=== PATIENT | female | born 1945 | race Caucasian/White ===

== ENCOUNTER 2018-10-26 17:22 | Emergency (ER) | payer OTHER, MEDICARE ==
--- NOTE | 2018-10-26 17:32 | PDOC ---
Rapid Medical Evaluation Time Seen by Provider: 10/26/18 17:29 Medical Evaluation: Allergies Allergy/AdvReac Type Severity Reaction Status Date / Time No Known Drug Allergies Allergy Verified 04/27/16 15:51 10/26/18 17:29 I performed a brief in-person evaluation of this patient. Chief complaint: Decrease in hgb on routine outpatient labs (patient thinks from hgb 10 to 8), on warfarin for "superficial blood clots" in the legs per pt. Denies hematochezia or other bleeding. Pertinent physical exam findings: Alert, well-appearing. RRR, S1/S2, clear lungs. I have ordered the following: CBC, CMP, PT/INR, T&S Patient will proceed to ED for further evaluation. Discharge Disposition - Diagnosis Anemia - Referrals - Patient Instructions - Post Discharge Activity
[2018-10-26 17:33] VITALS: TEMP 98.5; BMI 38.1
[2018-10-26 18:26] LABS: BASO % 0.6 % (0-2.0); EOS % 2.1 % (0-4.5); HEMATOCRIT 26.5 % (32.4-45.2); HEMOGLOBIN 8.7 GM/dL (10.7-15.3); LYMPH % 17.3 % (8-40); MCH 28.4 pg (25.7-33.7); MCHC 32.9 g/dl (32.0-36.0); MEAN CELL VOLUME 86.2 fl (80-96); MEAN PLT VOLUME 7.7 fl (7.5-11.1); MONO % 11.9 % (3.8-10.2); NEUT % 68.1 % (42.8-82.8); PLATELET COUNT 230 K/MM3 (134-434); RBC 3.07 M/mm3 (3.60-5.2); RDW 14.9 % (11.6-15.6)
[2018-10-26 18:43] LABS: ALBUMIN 3.5 g/dl (3.4-5.0); ALK PHOS 95 U/L (45-117); ANION GAP 5 MMOL/L (8-16); BILIRUBIN,TOTAL 0.3 mg/dL (0.2-1); BLOOD UREA NITROGEN 26 mg/dL (7-18); CALCIUM 8.8 mg/dL (8.5-10.1); CHLORIDE 102 mmol/L (98-107); CO2 28 mmol/L (21-32); GLUCOSE,RANDOM 142 mg/dL (74-106); POTASSIUM 3.8 mmol/L (3.5-5.1); SGOT/AST 16 U/L (15-37); SGPT/ALT 18 U/L (13-61); SODIUM 134 mmol/L (136-145)
[2018-10-26 18:51] LABS: INR 2.36 (0.83-1.09); PROTHROMBIN TIME (PATIENT) 28.1 SEC (9.7-13.0)
--- NOTE | 2018-10-26 20:33 | PDOC ---
History of Present Illness - General Chief Complaint: Revisit, Lab Variance Stated Complaint: NEEDS BLOOD WORK PCP SENT Time Seen by Provider: 10/26/18 17:29 History Source: Patient Exam Limitations: No Limitations - History of Present Illness Initial Comments: Pt is a 73 yo F, with PMH of HTN, HLD, thyroid nodules (followed by US with Dr. Lucas), "superficial" LE clots (per pt, on warfarin x2 years), who is presenting from home by her PCP (Dr. Orona) for concerns that her H/H is dropping on outpatient labwork. Pt denies any current SOB, syncopal episodes, changes to her coumadin therapy, noticeable blood in her urine or stool, changes in her stool caliber, or weight loss. Pt does not take NSAIDs or drink alcohol. Pt had stress test and echo done 6 months ago for exertional SOB which pt states "was all normal". Pt has regular cystoscopy done every year after a bladder polyp was removed in her 50s, with no reoccurrence. Her last colonoscopy and endoscopy showed no GI ulcers, but did show internal hemorrhoids with diverticulitis. Pt denies any recent fevers/chills, headache, vision changes, syncope, chest pain, palpitations, SOB, nausea/vomiting, abdominal pain, urinary symptoms, diarrhea/constipation, or leg swelling. Social: Pt denies any cigarette, alcohol, or drug use. Pt denies any recent travel or sick contacts. Surgical: bladder polyp removal, see above. Otherwise no abdominal surgeries. Family: no relevant history. 10/26/18 20:37 Past History - Travel Traveled outside of the country in the last 30 days: No Close contact w/someone who was outside of country & ill: No - Past Medical History Allergies/Adverse Reactions: Allergies Allergy/AdvReac Type Severity Reaction Status Date / Time No Known Drug Allergies Allergy Verified 10/26/18 17:30 Home Medications: Ambulatory Orders Oxycodone HCl/Acetaminophen [Percocet 5-325 mg Tablet] 1 combo PO Q4H PRN #0 tablet 01/04/13 Pravastatin Sodium [Pravachol -] 40 mg PO HS #0 tablet 01/04/13 Multivitamins [Multivit ([facility] Formulary)] 1 tab PO DAILY 06/11/14 Valsartan/Hydrochlorothiazide [Valsartan-Hctz 80-12.5 mg Tab] 1 each PO DAILY Cholecalciferol (Vitamin D3) [Vitamin D3 -] 1,000 unit PO DAILY 04/27/16 Acetaminophen [Tylenol -] 500 mg PO Q6H 04/28/16 Hydrocodone/Acetaminophen [Lortab 5-325 mg Tablet] 1 - 2 each PO QID PRN #20 tablet MDD 8 pills 04/28/16 Anemia: Yes (IRON DEFICIENCY) Asthma: No Cancer: Yes (BLADDER) Cardiac Disorders: No CVA: No COPD: No CHF: No Dementia: No Diabetes: No GI Disorders: Yes (DIVERTICULOSIS, HIATAL HERNIA) Disorders: No HTN: Yes Hypercholesterolemia: Yes Liver Disease: No Seizures: No Thyroid Disease: No - Surgical History Abdominal Surgery: No Appendectomy: No Cardiac Surgery: No Cholecystectomy: No Lung Surgery: No Neurologic Surgery: No Orthopedic Surgery: Yes (RIGHT TOTAL KNEE REPLACMENT) - Immunization History Td Vaccination: Yes - Suicide/Smoking/Psychosocial Hx Smoking Status: Yes Smoking History: Never smoked Have you smoked in the past 12 months: No Number of Cigarettes Smoked Daily: 0 If you are a former smoker, when did you quit?: 1970 Hx Alcohol Use: No Drug/Substance Use Hx: No Substance Use Type: None Hx Substance Use Treatment: No Review of Systems - Review of Systems Able to Perform ROS?: Yes Is the patient limited Chinese proficient: No Constitutional: Yes: Weight Stable. No: Chills, Diaphoresis, Fever, Loss of Appetite, Malaise, Weakness HEENTM: No: Blurred Vision, Double Vision, Nose Pain, Nose Congestion, Throat Pain, Throat Swelling, Difficulty Swallowing Respiratory: Yes: See HPI, Shortness of Breath, SOB with Exertion (for over 6 months, negative cardiac work-up, see HPI). No: Cough, Orthopnea, SOB at Rest, Wheezing, Productive cough, Hemoptysis Cardiac (ROS): No: Chest Pain, Edema, Irregular Heart Rate, Lightheadedness, Palpitations, Syncope, Chest Tightness ABD/GI: No: Blood Streaked Bowels, Constipated, Diarrhea, Nausea, Poor Appetite , Poor Fluid Intake, Rectal Bleeding, Vomiting, Abdominal cramping, Tarry Stools : No: Burning, Dysuria, Frequency, Hematuria, Pain, Urgency Musculoskeletal: No: Back Pain, Joint Pain, Muscle Weakness Integumentary: No: Rash Neurological: No: Numbness, Paresthesia, Seizure, Tremors, Weakness, Unsteady Gait, Dizziness Psychiatric: No: Sleep Pattern Change, Change in Appetite Endocrine: No: Increased Urine, Change in Weight Hematologic/Lymphatic: Yes: See HPI, Anemia, Blood Clots. No: Easy Bleeding, Easy Bruising All Other Systems: Reviewed and Negative *Physical Exam - Vital Signs Last Vital Signs Temp Pulse Resp BP Pulse Ox 98.5 F 96 H 17 153/90 100 10/26/18 17:30 10/26/18 17:30 10/26/18 17:30 10/26/18 17:30 10/26/18 19:14 - Physical Exam Comments: Vitals stable, pt afebrile. Pt in NAD, obese body habitus. Pt ambulatory in ED with no obvious dyspnea or retractions. Pt alert and oriented x3. shrimp cleaner generally intact, muscular strength and sensation intact. No midline spinal tenderness, step-offs, or crepitus. Head normocephalic, atraumatic. Eyes PERRLA, EOMI. Oropharynx without erythema or exudates, no LAD b/l. No nasal congestion, hearing intact. Clear heart sounds, S1/S2, no JVD, b/l pedal edema, or heart murmur. Clear lung sounds, no respiratory distress, wheezes, crackles, or accessory muscle use. No abdominal or CVA tenderness to palpation, no rebound, no guarding. Abdomen soft, non-distended, and with normoactive bowel sounds. Rectal exam showed no external hemorrhoids, no gross blood in MITALI. Skin without jaundice or rash. 10/26/18 20:40 ED Treatment Course - LABORATORY CBC & Chemistry Diagram: 10/26/18 18:05 10/26/18 18:05 - ADDITIONAL ORDERS Additional order review: Laboratory Results 10/26/18 10/26/18 18:05 18:05 PT with INR 28.10 H INR 2.36 H Sodium 134 L Potassium 3.8 Chloride 102 Carbon Dioxide 28 Anion Gap 5 L BUN 26 H Creatinine 1.0 Creat Clearance w eGFR 54.05 Random Glucose 142 H Calcium 8.8 Total Bilirubin 0.3 AST 16 ALT 18 Alkaline Phosphatase 95 Total Protein 7.0 Albumin 3.5 10/26/18 18:05 RBC 3.07 L MCV 86.2 MCHC 32.9 RDW 14.9 D MPV 7.7 Neutrophils % 68.1 Lymphocytes % 17.3 Monocytes % 11.9 H Eosinophils % 2.1 Basophils % 0.6 Medical Decision Making - Medical Decision Making Pt was seen at bedside, also will be seen by attending Dr. Worrell. Pt presenting from home by her PCP (Dr. Orona) for concerns that her H/H is dropping on outpatient labwork. Pt denies any current SOB, syncopal episodes, changes to her coumadin therapy, noticeable blood in her urine or stool, changes in her stool caliber, or weight loss. Pt does not take NSAIDs or drink alcohol. Pt had stress test and echo done 6 months ago for exertional SOB which pt states "was all normal". Pt has regular cystoscopy done every year after a bladder polyp was removed in her 50s, with no reoccurrence. Her last colonoscopy and endoscopy showed no GI ulcers, but did show internal hemorrhoids with diverticulitis. Pt denies any recent fevers/chills, headache, vision changes, syncope, chest pain, palpitations, SOB, nausea/vomiting, abdominal pain, urinary symptoms, diarrhea/constipation, or leg swelling. Considering chronic anemia 2/2 blood loss -- GI ulcer vs bladder? vs Fe- deficiency anemia vs dilution (pt states has been drinking more PO water). Pt has elevated BUN/Cr ratio, which could be indicative of upper GI bleed. Ordered work-up including CBC, CMP, coags, UA, and fecal occult blood test. Will continue to reassess pt and monitor for symptomatic improvement. 10/26/18 20:06 CBC: 8.7/26.5 (drop from 10.2/30s per pt). Normal MCV -- less likely Fe- deficiency, more likely chronic bleeding/ACD. CMP: BUN 26, which is steadily increasing from prior visits. INR therapeutic (2.36). Sent FOBT and UA tests to lab. 10/26/18 20:33 FOBT negative, no significant bleeding in UA (trace blood, +1 RBC -- consistent with story of prior bladder polyps). Pt gets regular cystoscopy done. Because pt is not currently symptomatic and there is no obvious source of bleeding (and not at level of needed transfusion), pt can be discharged to home with follow-up PCP (Dr. Orona) and pts urologist. Strict return precautions provided with pt understanding. 10/26/18 21:09 *DC/Admit/Observation/Transfer Diagnosis at time of Disposition: Anemia Qualifiers: Anemia type: other cause Other causes of anemia: other cause, not classified Qualified Code(s): D64.89 - Other specified anemias - Discharge Dispostion Disposition: HOME Condition at time of disposition: Good Decision to Admit order: No - Referrals Referrals: Daniel Orona MD [Primary Care Provider] - - Patient Instructions Printed Discharge Instructions: DI for Anemia of Chronic Disease Additional Instructions: You were seen in the ER today for anemia. The results of your labs today showed no active source of bleeding, and can be followed with Dr. Orona. Please follow- up with your primary care doctor within 1-2 days to discuss your visit and make sure your symptoms have improved. Please return to the ER if you have any worsening shortness of breath, chest pain or palpitations, development of fevers or chills, loss of consciousness, inability to tolerate food or fluids, or any other concerns. Please also continue to follow-up for your regular cystoscopy and colonoscopy as scheduled by Dr. Orona. - Post Discharge Activity
[2018-10-26 20:56] LABS: EPI CELLS 0.2 /HPF (0-5/HPF); URINE APPEARANCE CLEAR; URINE BACTERIA 0 /hpf (NEGATIVE); URINE BILIRUBIN NEGATIVE (NEGATIVE); URINE CASTS 0 /lpf (0-8); URINE COLOR YELLOW; URINE GLUCOSE (UA) NEGATIVE (NEGATIVE); URINE KETONE NEGATIVE (NEGATIVE); URINE LEUK ESTERASE NEGATIVE (NEGATIVE); URINE NITRITE NEGATIVE (NEGATIVE); URINE PROTEIN NEGATIVE (NEGATIVE); URINE RBC 1 /hpf (0-4); URINE UROBILINOGEN 0.2 mg/dL (0.2-1.0); URINE WBC 0 /hpf (0-5)
--- NOTE | 2018-10-26 21:30 | PDOC ---
Documentation entered by Joseph Martino SCRIBE, acting as scribe for Bahman Worrell MD. Bahman Worrell MD: This documentation has been prepared by the [employer] Daniel, SCRIBE, under my direction and personally reviewed by me in its entirety. I confirm that the documentation accurately reflects all work, treatment, procedures, and medical decision making performed by me. Attending Attestation - Resident Resident Name: KevinMimi - ED Attending Attestation I have performed the following: I have examined & evaluated the patient, The case was reviewed & discussed with the resident, I agree w/resident's findings & plan, Exceptions are as noted - HPI HPI: 10/26/18 20:19 The patient is a 73 year old female with a past medical history of HTN, HLD, thyroid nodules, superficial DVT (on coumadin), here today for evaluation of low H/H. Patient reports that she went for routine blood work on 10/25/18 and was told today that her H/H was low. Pt's Hb yesterday was 8, down from 10 a few weeks ago. Pt denies any complaints. Denies CP/SOB/palpitations/ lightheadedness. Denies any dark tarry stools or BRBPR. No hematuria. Patient denies headache, lightheadedness. Denies fever, chills. Denies chest pain, shortness of breath. Denies nausea, vomiting, diarrhea, abdominal pain. Allergies: NKDA PCP: Daniel Orona - Physicial Exam PE: 10/26/18 21:26 GENERAL: Awake, alert, and fully oriented, in no acute distress. HEAD: No signs of trauma EYES: PERRLA, EOMI, sclera anicteric, conjunctiva clear ENT: Auricles normal inspection, hearing grossly normal, nares patent, oropharynx clear without exudates. Moist mucosa NECK: Nontender, no stepoffs, Normal ROM, supple, no lymphadenopathy, JVD, or masses LUNGS: Breath sounds equal, clear to auscultation bilaterally. No wheezes, and no crackles HEART: Regular rate and rhythm, normal S1 and S2, no murmurs, rubs or gallops ABDOMEN: Soft, nontender, normoactive bowel sounds. No guarding, no rebound. No masses EXTREMITIES: Normal range of motion, no edema. No clubbing or cyanosis. No cords, erythema, or tenderness NEUROLOGICAL: Cranial nerves II through XII intact. 5/5 strength and sensation in all extremities, Normal speech, normal gait, normal cerebellar function SKIN: Warm, Dry, normal turgor, no rashes or lesions noted. - Medical Decision Making 10/26/18 21:29 73 F here for evaluation of low H/H on outpt labs. Pt with no symptoms of anemia , stable vitals. No signs of bleeding on exam. - Repeat H/H - FOBT Labs unremarkable, CBC stable since yesterday Stool occult negative Pt is well appearing, with normal vitals. Clinically stable for DC at this time. I discussed the physical exam findings, ancillary test results and final diagnoses with the patient. I answered all of the patient's questions. The patient was satisfied with the care received and felt comfortable with the discharge plan and treatment plan. The patient agrees to follow up with the primary care physician within 24-72 hours.
[2018-10-26 21:42] VITALS: BP 136/70; PULSE 79
== END 2018-10-26 21:43 | disposition home or self-care (01) ==
LOC: JER 17:22
DX: D64.89 Other specified anemias (principal); I10 Essential (primary) hypertension; E78.5 Hyperlipidemia, unspecified; Z86.718 Personal history of other venous thrombosis and embolism; Z79.01 Long term (current) use of anticoagulants
CPT/HCPCS: 36415; 80053; 81003; 82272; 85025; 85610; 86850; 86900; 86901; 99283-25

== ENCOUNTER 2021-01-02 15:28 | Emergency (ER) | payer OTHER, MEDICARE ==
[2021-01-02 15:40] VITALS: BMI 37.8
[2021-01-02] MEDS ORDERED: PHYTONADIONE 5 MG TABLET PO ONE (16:34)
[2021-01-02 16:45] VITALS: TEMP 98
[2021-01-02] MEDS ORDERED: PHYTONADIONE 5 MG TABLET ONE (16:51)
[2021-01-02 17:33] VITALS: BP 136/79; PULSE 87
== END 2021-01-02 17:36 | disposition home or self-care (01) ==
LOC: JER 15:28
DX: R79.1 Abnormal coagulation profile (principal)
CPT/HCPCS: 99283-25

== ENCOUNTER 2021-03-20 14:48 | Emergency (ER) | payer OTHER, MEDICARE ==
[2021-03-20 15:37] VITALS: TEMP 98.4; BMI 39.0
[2021-03-20 18:40] VITALS: BP 144/78; PULSE 86
== END 2021-03-20 19:35 | disposition home or self-care (01) ==
LOC: JER 14:48
DX: B02.8 Zoster with other complications (principal)
CPT/HCPCS: 70450-TC; 99284-25

== ENCOUNTER 2021-06-08 04:24 | Day surgery (SDC) | payer OTHER, MEDICARE ==
[2021-06-02 13:28] VITALS: BMI 39.0
[2021-06-08] MEDS ORDERED: BUPIVACAINE HCL/PF 0.75% 10 ML VIAL ONE (07:34)
[2021-06-08] MEDS ORDERED: LIDOCAINE HCL/PF 1% SDV 5ML VIAL ONE (07:34)
[2021-06-08] MEDS ORDERED: LIDOCAINE HCL 1% PRESERVATIVE FREE - 30ML VIAL EP ONE (11:55)
[2021-06-08] MEDS ORDERED: DEXAMETHASONE SOD PHOSPHATE 10 MG/1 ML VIAL IM ONE (11:55)
[2021-06-08] MEDS ORDERED: IOHEXOL 180 MG/1 ML ML IJ ONE (11:56)
[2021-06-08 14:19] VITALS: BP 139/67; PULSE 88; TEMP 98
== END 2021-06-08 13:10 | disposition home or self-care (01) ==
LOC: JASU-SURG 04:24
PROVIDERS: ATTEND Pain Medicine Pain Medicine
PROC: 3E0T3BZ Introduction of Anesthetic Agent into Peripheral Nerves and Plexi, Percutaneous Approach (ICD-10-PCS; 2021-06-08)
PROC: 3E0T33Z Introduction of Anti-inflammatory into Peripheral Nerves and Plexi, Percutaneous Approach (ICD-10-PCS; principal; 2021-06-08 10:00)
DX: M47.816 Spondylosis without myelopathy or radiculopathy, lumbar region (principal)
CPT/HCPCS: 76000-TC-FY; J1100

== ENCOUNTER 2021-06-29 05:11 | Day surgery (SDC) | payer OTHER, MEDICARE ==
[2021-06-25 17:58] VITALS: BMI 39.0
[~2021-06-29 05:11] MED LIST: BUPIVACAINE HCL/PF 0.75% 10 ML VIAL NR ONE; IOHEXOL 180 MG/1 ML ML IJ ONE; LIDOCAINE HCL 1% PRESERVATIVE FREE - 30ML VIAL IJ ONE
[2021-06-29] MEDS ORDERED: BUPIVACAINE HCL/PF 0.25% (2.5MG/ML) 10 ML VIAL ONE (07:24)
[2021-06-29] MEDS ORDERED: BUPIVACAINE HCL/PF 0.75% 10 ML VIAL ONE (07:24)
[2021-06-29] MEDS ORDERED: LIDOCAINE HCL 1% PRESERVATIVE FREE - 30ML VIAL IJ ONE (10:18)
[2021-06-29] MEDS ORDERED: IOHEXOL 180 MG/1 ML ML IJ ONE (10:19)
[2021-06-29] MEDS ORDERED: BUPIVACAINE HCL/PF 0.75% 10 ML VIAL NR ONE (10:20)
[2021-06-29 11:28] VITALS: TEMP 97.7
[2021-06-29 11:43] VITALS: BP 127/78; PULSE 71
== END 2021-06-29 11:50 | disposition home or self-care (01) ==
LOC: JASU-SURG 05:11
PROVIDERS: ATTEND Pain Medicine Pain Medicine
PROC: 3E0T33Z Introduction of Anti-inflammatory into Peripheral Nerves and Plexi, Percutaneous Approach (ICD-10-PCS; 2021-06-29)
PROC: 3E0T3BZ Introduction of Anesthetic Agent into Peripheral Nerves and Plexi, Percutaneous Approach (ICD-10-PCS; principal; 2021-06-29 10:00)
DX: M47.816 Spondylosis without myelopathy or radiculopathy, lumbar region (principal)
CPT/HCPCS: 76000-TC-FY

== ENCOUNTER 2021-07-28 13:04 | Emergency (ER) | payer OTHER, MEDICARE ==
[2021-07-28 13:18] VITALS: BP 152/84; PULSE 88; TEMP 97.9; BMI 39.0
== END 2021-07-28 15:41 | disposition home or self-care (01) ==
LOC: JERFT 13:04
DX: S09.90XA Unspecified injury of head, initial encounter (principal)
CPT/HCPCS: 70450-TC; 99284-25

== ENCOUNTER → 2021-07-28 | Day surgery (SDC) | payer OTHER, MEDICARE | END | disposition home or self-care (01) | LOC: JRADIR 10:08 | PROVIDERS: ATTEND Internal Medicine Endocrinology, Diabetes & Metabolism | PROC: 0G9H3ZX Drainage of Right Thyroid Gland Lobe, Percutaneous Approach, Diagnostic (ICD-10-PCS; principal; 2021-07-28) | DX: E04.1 Nontoxic single thyroid nodule (principal) | CPT/HCPCS: 10005; 76942 ==

== ENCOUNTER 2021-09-20 06:31 | Day surgery (SDC) | payer OTHER, MEDICARE ==
[2021-09-20] MEDS ORDERED: IRON SUCROSE INJECTION 200 MG in SODIUM CHLORIDE 100 ML IVPB ONE (10:00)
[2021-09-20 15:42] VITALS: TEMP 97.8
[2021-09-20 15:46] VITALS: BP 164/86; PULSE 79
== END 2021-09-20 13:30 | disposition home or self-care (01) ==
LOC: JONCNONCHE 06:31
PROVIDERS: ATTEND Internal Medicine Hematology & Oncology
DX: D50.9 Iron deficiency anemia, unspecified (principal)
CPT/HCPCS: 96365; J1756

== ENCOUNTER 2021-09-27 07:06 | Day surgery (SDC) | payer OTHER, MEDICARE ==
[2021-09-27] MEDS ORDERED: IRON SUCROSE INJECTION 200 MG in SODIUM CHLORIDE 100 ML IVPB ONE (10:00)
[2021-09-27 17:46] VITALS: BP 122/48; PULSE 69; TEMP 98.5
== END 2021-09-27 14:15 | disposition home or self-care (01) ==
LOC: JONCNONCHE 07:06
PROVIDERS: ATTEND Internal Medicine Hematology & Oncology
PROC: 3E033GC Introduction of Other Therapeutic Substance into Peripheral Vein, Percutaneous Approach (ICD-10-PCS; principal; 2021-09-27)
DX: D50.9 Iron deficiency anemia, unspecified (principal)
CPT/HCPCS: 96365; J1756

== ENCOUNTER 2021-10-04 07:12 | Day surgery (SDC) | payer OTHER, MEDICARE ==
[2021-10-04] MEDS ORDERED: IRON SUCROSE INJECTION 200 MG in SODIUM CHLORIDE 100 ML IVPB ONE (10:00)
[2021-10-04 15:12] VITALS: TEMP 98.3
[2021-10-04 15:33] VITALS: BP 156/68; PULSE 69
== END 2021-10-04 14:15 | disposition home or self-care (01) ==
LOC: JONCNONCHE 07:12
PROVIDERS: ATTEND Internal Medicine Hematology & Oncology
PROC: 3E033GC Introduction of Other Therapeutic Substance into Peripheral Vein, Percutaneous Approach (ICD-10-PCS; principal; 2021-10-04)
DX: D50.9 Iron deficiency anemia, unspecified (principal)
CPT/HCPCS: 96365; J1756

== ENCOUNTER 2021-10-11 07:25 | Day surgery (SDC) | payer OTHER, MEDICARE ==
[2021-10-11] MEDS ORDERED: IRON SUCROSE INJECTION 200 MG in SODIUM CHLORIDE 100 ML IVPB ONE (10:00)
[2021-10-11 17:44] VITALS: BP 126/56; PULSE 70; TEMP 98.5
== END 2021-10-11 15:00 | disposition home or self-care (01) ==
LOC: JONCNONCHE 07:25
PROVIDERS: ATTEND Internal Medicine Hematology & Oncology
PROC: 3E033GC Introduction of Other Therapeutic Substance into Peripheral Vein, Percutaneous Approach (ICD-10-PCS; principal; 2021-10-11)
DX: D50.9 Iron deficiency anemia, unspecified (principal)
CPT/HCPCS: 96365; J1756

== ENCOUNTER 2021-12-13 07:17 | Day surgery (SDC) | payer OTHER, MEDICARE ==
[2021-12-13] MEDS ORDERED: IRON SUCROSE INJECTION 200 MG in SODIUM CHLORIDE 100 ML IVPB ONE (10:00)
[2021-12-13 14:35] VITALS: TEMP 98.4
[2021-12-13 15:21] VITALS: BP 110/58; PULSE 82
== END 2021-12-13 15:20 | disposition home or self-care (01) ==
LOC: JONCCHEMO 07:17
PROVIDERS: ATTEND Internal Medicine Hematology & Oncology
PROC: 3E033GC Introduction of Other Therapeutic Substance into Peripheral Vein, Percutaneous Approach (ICD-10-PCS; principal; 2021-12-13)
DX: E61.1 Iron deficiency (principal)
CPT/HCPCS: 96365; J1756

== ENCOUNTER 2021-12-20 07:08 | Day surgery (SDC) | payer OTHER, MEDICARE ==
[2021-12-20] MEDS ORDERED: IRON SUCROSE INJECTION 200 MG in SODIUM CHLORIDE 100 ML IVPB ONE (10:00)
[2021-12-20 18:23] VITALS: BP 123/51; PULSE 66; TEMP 98.5
== END 2021-12-20 14:45 | disposition home or self-care (01) ==
LOC: JONCNONCHE 07:08
PROVIDERS: ATTEND Internal Medicine Hematology & Oncology
PROC: 3E033GC Introduction of Other Therapeutic Substance into Peripheral Vein, Percutaneous Approach (ICD-10-PCS; principal; 2021-12-20)
DX: D50.9 Iron deficiency anemia, unspecified (principal)
CPT/HCPCS: 96365; J1756

== ENCOUNTER 2021-12-28 06:44 | Day surgery (SDC) | payer OTHER, MEDICARE ==
[2021-12-28] MEDS ORDERED: IRON SUCROSE INJECTION 200 MG in SODIUM CHLORIDE 100 ML IVPB ONE (10:00)
[2021-12-28 14:54] VITALS: TEMP 98.5
[2021-12-28 15:08] VITALS: BP 135/65; PULSE 70
== END 2021-12-28 15:15 | disposition home or self-care (01) ==
LOC: JONCNONCHE 06:44
PROVIDERS: ATTEND Internal Medicine Hematology & Oncology
PROC: 3E033GC Introduction of Other Therapeutic Substance into Peripheral Vein, Percutaneous Approach (ICD-10-PCS; principal; 2021-12-28)
DX: D50.9 Iron deficiency anemia, unspecified (principal)
CPT/HCPCS: 96365; J1756

== ENCOUNTER 2022-01-04 06:21 | Day surgery (SDC) | payer OTHER, MEDICARE ==
[2022-01-04] MEDS ORDERED: IRON SUCROSE INJECTION 200 MG in SODIUM CHLORIDE 100 ML IVPB ONE (10:00)
[2022-01-04 17:03] VITALS: BP 137/59; PULSE 79; TEMP 98
== END 2022-01-04 15:15 | disposition home or self-care (01) ==
LOC: JONCNONCHE 06:21
PROVIDERS: ATTEND Internal Medicine Hematology & Oncology
PROC: 3E033GC Introduction of Other Therapeutic Substance into Peripheral Vein, Percutaneous Approach (ICD-10-PCS; principal; 2022-01-04)
DX: D50.9 Iron deficiency anemia, unspecified (principal)
CPT/HCPCS: 96365; J1756

== ENCOUNTER 2023-04-25 05:21 | Day surgery (SDC) | payer OTHER, MEDICARE ==
[2023-04-21 16:41] VITALS: BMI 33.5
[2023-04-25] MEDS ORDERED: LIDOCAINE HCL/PF 1% SDV 5ML VIAL ONE (10:21)
[2023-04-25] MEDS ORDERED: BUPIVACAINE HCL/PF 0.5% (5MG/ML) 10 ML VIAL ONE (10:21)
[2023-04-25] MEDS ORDERED: BUPIVACAINE HCL/PF 0.25% (2.5MG/ML) 10 ML VIAL ONE (10:21)
[2023-04-25] MEDS ORDERED: TRIAMCINOLONE ACET 40MG/1ML VIAL ONE (10:26)
[2023-04-25 12:10] VITALS: RESP 18
[2023-04-25] MEDS ORDERED: LIDOCAINE HCL 1% PRESERVATIVE FREE - 30ML VIAL IJ ONE (13:51)
[2023-04-25] MEDS ORDERED: IOHEXOL 180 MG/1 ML ML IJ ONE (13:53)
[2023-04-25] MEDS ORDERED: BUPIVACAINE HCL/PF 0.5% (5MG/ML) 10 ML VIAL IJ ONE (13:54)
[2023-04-25] MEDS ORDERED: TRIAMCINOLONE ACET 40MG/1ML VIAL IJ ONE (13:54)
[2023-04-25 14:59] VITALS: BP 140/68; PULSE 112; TEMP 98
[2023-04-25] MEDS ORDERED: ACETAMINOPHEN 500 MG TABLET (FP) PO PRN (15:32)
== END 2023-04-25 15:15 | disposition home or self-care (01) ==
LOC: JASU-SURG 05:21
PROVIDERS: ATTEND Pain Medicine Pain Medicine
PROC: 3E0U3BZ Introduction of Anesthetic Agent into Joints, Percutaneous Approach (ICD-10-PCS; 2023-04-25)
PROC: 3E0U33Z Introduction of Anti-inflammatory into Joints, Percutaneous Approach (ICD-10-PCS; principal; 2023-04-25 12:30)
DX: M25.551 Pain in right hip (principal)
CPT/HCPCS: 76000-TC-FY

== ENCOUNTER 2023-04-28 12:09 | Inpatient (IN) | payer OTHER, MEDICARE ==
[2023-04-28 15:48] LABS: BASO % 0.2 % (0-2.0); EOS % 0.2 % (0-4.5); HEMATOCRIT 21.8 % (32.4-45.2); HEMOGLOBIN 7.1 GM/dL (10.7-15.3); LYMPH % 10.4 % (8-40); MCH 25.6 pg (25.7-33.7); MCHC 32.4 g/dl (32.0-36.0); MEAN CELL VOLUME 79.2 fl (80-96); MEAN PLT VOLUME 6.7 fl (7.5-11.1); MONO % 11.1 % (3.8-10.2); NEUT % 78.1 % (42.8-82.8); PLATELET COUNT 283 10^3/uL (134-434); RBC 2.75 M/mm3 (3.60-5.2); RDW 17.2 % (11.6-15.6)
[2023-04-28 15:53] LABS: PROTHROMBIN TIME (PATIENT) 60.5 SEC (9.7-13.0)
[2023-04-28 16:04] LABS: INR 5.3 (0.83-1.09)
[2023-04-28 16:14] LABS: POTASSIUM 3.6 mmol/L (3.5-5.1)
[2023-04-28 16:16] LABS: CALCIUM 9.2 mg/dL (8.5-10.1)
[2023-04-28 16:17] LABS: ALBUMIN 3.3 g/dl (3.4-5.0); BLOOD UREA NITROGEN 38.2 mg/dL (7-18)
[2023-04-28 16:20] LABS: CREATININE 1.4 mg/dL (0.55-1.3)
[2023-04-28 16:21] LABS: BILIRUBIN,TOTAL 0.4 mg/dL (0.2-1); TOT PROT 6.3 g/dl (6.4-8.2)
[2023-04-28] MEDS ORDERED: VANCOMYCIN 1,000 MG in DEXTROSE 5%-WATER - 250 ML IVPB ONE (20:27)
[2023-04-28] MEDS ORDERED: PIPERACILLIN/TAZOB 4.5 GM 4.5 GM in DEXTROSE 5%-WATER 100 ML IVPB ONE (20:27)
[2023-04-28] MEDS ORDERED: PIPERACILLIN/TAZOB 4.5 GM 4.5 GM/100 ML BAG IVPB ONE (20:46)
[2023-04-28] MEDS ORDERED: VANCOMYCIN 1 GRAM (PRE-DOCKED) 1,000 MG/250 ML BAG IVPB ONE (21:48)
[2023-04-29] MEDS ORDERED: IRON SUCROSE INJECTION 100 MG in SODIUM CHLORIDE 95 ML IVPB ONE (01:43)
[2023-04-29] MEDS ORDERED: PANTOPRAZOLE SODIUM 40 MG VIAL ONE (03:50)
[2023-04-29] MEDS: PANTOPRAZOLE SODIUM 40 MG VIAL IVPUSH SCH ×2 (03:58→13:09)
[2023-04-29] MEDS ORDERED: PIPERACILLIN/TAZOB 4.5 GM 4.5 GM/100 ML BAG IVPB ONE (05:33)
[2023-04-29] MEDS: PIPERACILLIN/TAZOB 4.5 GM 4.5 GM in DEXTROSE 5%-WATER 100 ML IVPB SCH ×2 (05:33→11:05)
[2023-04-29] MEDS ORDERED: FUROSEMIDE 40 MG/4 ML INJECTABLE VIAL ONE (09:38)
[2023-04-29] MEDS: FUROSEMIDE 40 MG/4 ML INJECTABLE VIAL IVPUSH SCH (09:44)
[2023-04-29] MEDS: predniSONE 5 MG TABLET (UD) PO SCH (09:44)
[2023-04-29] MEDS ORDERED: oxyCODONE HCL 5 MG TABLET PO PRN ×2 (10:39)
[2023-04-29 11:11] LABS: HEMATOCRIT 25.4 % (32.4-45.2); HEMOGLOBIN 8.2 GM/dL (10.7-15.3); MCHC 32.2 g/dl (32.0-36.0); MEAN CELL VOLUME 80.6 fl (80-96); MEAN PLT VOLUME 6.6 fl (7.5-11.1); PLATELET COUNT 300 10^3/uL (134-434); RBC 3.16 M/mm3 (3.60-5.2); RDW 16.6 % (11.6-15.6); WHITE BLOOD COUNT 8.3 K/mm3 (4.0-10.0)
[2023-04-29 11:23] LABS: INR 4.64 (0.83-1.09)
[2023-04-29] MEDS ORDERED: ACETAMINOPHEN 325 MG TABLET (FP) PO PRN ×3 (12:13→16:13)
[2023-04-29 14:20] LABS: ALBUMIN 3.1 g/dl (3.4-5.0); BILIRUBIN,TOTAL 0.7 mg/dL (0.2-1); BLOOD UREA NITROGEN 33.3 mg/dL (7-18); CALCIUM 8.9 mg/dL (8.5-10.1); CREATININE 1.5 mg/dL (0.55-1.3); POTASSIUM 3.6 mmol/L (3.5-5.1); TOT PROT 6.1 g/dl (6.4-8.2)
[2023-04-29] MEDS: AMPICILLIN NA/SULBACTAM NA 1.5 GM in SODIUM CHLORIDE 100 ML IVPB SCH (21:15)
[2023-04-29] MEDS: ATORVASTATIN CA 10 MG TABLET (FP) PO SCH (21:31)
[2023-04-29] MEDS ORDERED: VANCOMYCIN 1 GRAM (PRE-DOCKED) 1,000 MG/250 ML BAG IVPB SCH (22:00)
[2023-04-30] MEDS ORDERED: PIPERACILLIN/TAZOB 4.5 GM 4.5 GM in DEXTROSE 5%-WATER 100 ML IVPB SCH (02:00)
[2023-04-30] MEDS: PANTOPRAZOLE SODIUM 40 MG VIAL IVPUSH SCH ×2 (02:34→13:59)
[2023-04-30] MEDS: AMPICILLIN NA/SULBACTAM NA 1.5 GM in SODIUM CHLORIDE 100 ML IVPB SCH ×3 (06:01→21:57)
[2023-04-30 09:31] LABS: BASO % 0.5 % (0-2.0); HEMATOCRIT 25.2 % (32.4-45.2); HEMOGLOBIN 8.3 GM/dL (10.7-15.3); LYMPH % 9.4 % (8-40); MCHC 32.9 g/dl (32.0-36.0); MEAN CELL VOLUME 79.1 fl (80-96); MONO % 13.7 % (3.8-10.2); NEUT % 73.4 % (42.8-82.8); PLATELET COUNT 271 10^3/uL (134-434); RBC 3.18 M/mm3 (3.60-5.2); RDW 16.6 % (11.6-15.6); RETICULOCYTES 1.95 % (0.5-1.5); WHITE BLOOD COUNT 6.3 K/mm3 (4.0-10.0)
[2023-04-30 09:36] LABS: INR 3.42 (0.83-1.09); PROTHROMBIN TIME (PATIENT) 39.2 SEC (9.7-13.0)
[2023-04-30] MEDS: predniSONE 5 MG TABLET (UD) PO SCH (10:02)
[2023-04-30] MEDS: FUROSEMIDE 40 MG/4 ML INJECTABLE VIAL IVPUSH SCH (10:02)
[2023-04-30 10:03] LABS: POTASSIUM 3.4 mmol/L (3.5-5.1)
[2023-04-30 10:05] LABS: ALBUMIN 2.8 g/dl (3.4-5.0); CALCIUM 8.6 mg/dL (8.5-10.1)
[2023-04-30 10:07] LABS: BLOOD UREA NITROGEN 23.5 mg/dL (7-18)
[2023-04-30 10:08] LABS: CREATININE 1.2 mg/dL (0.55-1.3)
[2023-04-30 10:10] LABS: BILIRUBIN,TOTAL 0.5 mg/dL (0.2-1); TOT PROT 5.6 g/dl (6.4-8.2)
[2023-04-30 14:58] VITALS: BMI 30.1
[2023-04-30] MEDS ORDERED: PHYTONADIONE 5 MG TABLET PO ONE (18:53)
[2023-04-30 19:36] LABS: INR 2.8 (0.83-1.09); PROTHROMBIN TIME (PATIENT) 32.2 SEC (9.7-13.0)
[2023-04-30] MEDS: ATORVASTATIN CA 10 MG TABLET (FP) PO SCH (21:55)
[2023-04-30] MEDS ORDERED: VANCOMYCIN 1 GRAM (PRE-DOCKED) 1,000 MG/250 ML BAG IVPB SCH (22:00)
[2023-05-01] MEDS: PANTOPRAZOLE SODIUM 40 MG VIAL IVPUSH SCH ×2 (01:23→13:49)
[2023-05-01] MEDS: AMPICILLIN NA/SULBACTAM NA 1.5 GM in SODIUM CHLORIDE 100 ML IVPB SCH ×3 (05:34→21:32)
[2023-05-01] MEDS: predniSONE 5 MG TABLET (UD) PO SCH (09:24)
[2023-05-01] MEDS: FUROSEMIDE 40 MG/4 ML INJECTABLE VIAL IVPUSH SCH (09:24)
[2023-05-01 11:11] LABS: BASO % 0.3 % (0-2.0); EOS % 2.9 % (0-4.5); HEMATOCRIT 24.7 % (32.4-45.2); HEMOGLOBIN 8.4 GM/dL (10.7-15.3); LYMPH % 10.4 % (8-40); MCH 26.8 pg (25.7-33.7); MCHC 33.8 g/dl (32.0-36.0); MEAN CELL VOLUME 79.3 fl (80-96); MEAN PLT VOLUME 6.8 fl (7.5-11.1); MONO % 12.8 % (3.8-10.2); NEUT % 73.6 % (42.8-82.8); PLATELET COUNT 296 10^3/uL (134-434); RBC 3.12 M/mm3 (3.60-5.2); WHITE BLOOD COUNT 7.5 K/mm3 (4.0-10.0)
[2023-05-01 11:13] LABS: INR 1.73 (0.83-1.09)
[2023-05-01 11:32] LABS: POTASSIUM 3.2 mmol/L (3.5-5.1)
[2023-05-01 11:35] LABS: CALCIUM 8.8 mg/dL (8.5-10.1)
[2023-05-01 11:36] LABS: BLOOD UREA NITROGEN 20.9 mg/dL (7-18)
[2023-05-01 11:39] LABS: CREATININE 1.3 mg/dL (0.55-1.3)
[2023-05-01 11:40] LABS: BILIRUBIN,TOTAL 0.5 mg/dL (0.2-1); TOT PROT 6.2 g/dl (6.4-8.2)
[2023-05-01] MEDS ORDERED: POTASSIUM CHLORIDE TABS 20 MEQ TABLET.ER (FP) PO ONE (15:22)
[2023-05-01] MEDS: KCL 10 MEQ IVPB 10 MEQ/100 ML INFUS.BAG IVPB SCH ×2 (16:09→18:21)
[2023-05-01] MEDS ORDERED: KCL 10 MEQ IVPB 10 MEQ/100 ML INFUS.BAG IVPB SCH (21:00)
[2023-05-01] MEDS ORDERED: AMPICILLIN NA/SULBACTAM NA 1.5 GM VIAL ONE (21:04)
[2023-05-01] MEDS: ATORVASTATIN CA 10 MG TABLET (FP) PO SCH (21:32)
[2023-05-02] MEDS: PANTOPRAZOLE SODIUM 40 MG VIAL IVPUSH SCH ×2 (00:58→13:03)
[2023-05-02] MEDS: AMPICILLIN NA/SULBACTAM NA 1.5 GM in SODIUM CHLORIDE 100 ML IVPB SCH ×4 (05:53→22:05)
[2023-05-02] MEDS: FUROSEMIDE 40 MG TABLET (FP) PO SCH ×2 (05:54→14:38)
[2023-05-02 10:11] LABS: HEMATOCRIT 28.9 % (32.4-45.2); HEMOGLOBIN 9.2 GM/dL (10.7-15.3); MCH 26.1 pg (25.7-33.7); MCHC 31.7 g/dl (32.0-36.0); MEAN CELL VOLUME 82.4 fl (80-96); PLATELET COUNT 353 10^3/uL (134-434); RBC 3.51 M/mm3 (3.60-5.2); RDW 17.3 % (11.6-15.6); WHITE BLOOD COUNT 9.9 K/mm3 (4.0-10.0)
[2023-05-02 10:18] LABS: INR 1.17 (0.83-1.09); PROTHROMBIN TIME (PATIENT) 13.6 SEC (9.7-13.0)
[2023-05-02 10:30] LABS: POTASSIUM 3.7 mmol/L (3.5-5.1)
[2023-05-02] MEDS: predniSONE 5 MG TABLET (UD) PO SCH (10:32)
[2023-05-02] MEDS: POTASSIUM CHLORIDE TABS 20 MEQ TABLET.ER (FP) PO SCH (10:32)
[2023-05-02 10:33] LABS: CALCIUM 9.1 mg/dL (8.5-10.1)
[2023-05-02 10:34] LABS: ALBUMIN 3.3 g/dl (3.4-5.0); BLOOD UREA NITROGEN 17.3 mg/dL (7-18)
[2023-05-02 10:36] LABS: CREATININE 1.3 mg/dL (0.55-1.3)
[2023-05-02 10:38] LABS: BILIRUBIN,TOTAL 0.9 mg/dL (0.2-1); TOT PROT 6.6 g/dl (6.4-8.2)
[2023-05-02] MEDS ORDERED: IRON SUCROSE INJECTION 200 MG in SODIUM CHLORIDE 90 ML IVPB ONE (12:00)
[2023-05-02 21:00] VITALS: RESP 18
[2023-05-02] MEDS: ATORVASTATIN CA 10 MG TABLET (FP) PO SCH (21:55)
[2023-05-03] MEDS: PANTOPRAZOLE SODIUM 40 MG VIAL IVPUSH SCH (01:02)
[2023-05-03] MEDS: AMPICILLIN NA/SULBACTAM NA 1.5 GM in SODIUM CHLORIDE 100 ML IVPB SCH ×2 (06:17→12:30)
[2023-05-03] MEDS: FUROSEMIDE 40 MG TABLET (FP) PO SCH ×2 (06:51→13:18)
[2023-05-03] MEDS: predniSONE 5 MG TABLET (UD) PO SCH (09:18)
[2023-05-03] MEDS: POTASSIUM CHLORIDE TABS 20 MEQ TABLET.ER (FP) PO SCH (09:18)
[2023-05-03] MEDS ORDERED: PANTOPRAZOLE 40 MG TABLET PO SCH (10:36)
[2023-05-03 13:27] VITALS: BP 109/59; PULSE 95; TEMP 97.8
[2023-05-04] MEDS ORDERED: FUROSEMIDE 40 MG TABLET (FP) PO SCH (10:00)
== END 2023-05-03 14:45 | disposition home or self-care (01) | DRG 602 ==
LOC: JER 12:09 → JERBED 16:39 → UNDOADMOB 16:39 → OBSVTOIN 16:39 → INTOOBSV 16:39 → J6S 04-29 09:52 → JERBED 04-29 09:52 → J6S 04-29 17:46 → OBSVTOIN 04-29 17:46
PROVIDERS: ADMIT Internal Medicine; ATTEND Internal Medicine
PROC: 30233N1 Transfusion of Nonautologous Red Blood Cells into Peripheral Vein, Percutaneous Approach (ICD-10-PCS; principal; 2023-04-29)
DX: L03.115 Cellulitis of right lower limb (principal); I50.33 Acute on chronic diastolic (congestive) heart failure; I13.0 Hypertensive heart and chronic kidney disease with heart failure and stage 1 through stage 4 chronic kidney disease, or unspecified chronic kidney disease; T45.515A Adverse effect of anticoagulants, initial encounter; L03.116 Cellulitis of left lower limb; R79.1 Abnormal coagulation profile; D64.9 Anemia, unspecified; E78.5 Hyperlipidemia, unspecified; Y92.89 Other specified places as the place of occurrence of the external cause; N18.9 Chronic kidney disease, unspecified
CPT/HCPCS: 36415; 36430; 71045-TC-FY; 73590-TC-RT-FY; 73610-TC-RT-FY; 73630-TC-RT-FY; 76775-TC; 80053; 82272; 82550; 82570; 82607; 82728; 82746; 83540; 83550; 83735; 83880; 84156; 84484; 85025; 85027; 85045; 85610; 85730; 86850; 86900; 86901; 86922; 93005; 93010; 93970-TC; 97116-GP; 97162-GP; 99285-25; J1756; P9058

== ENCOUNTER 2023-07-02 10:17 | Inpatient (IN) | payer OTHER, MEDICARE ==
[2023-07-02 10:36] VITALS: BMI 28.5
[2023-07-02] MEDS ORDERED: ACETAMINOPHEN 500 MG TABLET (FP) PO ONE (11:13)
[2023-07-02] MEDS ORDERED: ACETAMINOPHEN 500 MG TABLET (FP) ONE (11:23)
[2023-07-02 12:42] LABS: EPI CELLS 0 /uL (0-25.1); HYALINE CASTS 0 /uL (0-3.1); PH,URINE 5.5 (5.0-8.0); URINE APPEARANCE CLOUDY; URINE BACTERIA 9 /uL (0-1359); URINE BILIRUBIN NEGATIVE (NEGATIVE); URINE COLOR YELLOW; URINE GLUCOSE (UA) NEGATIVE (NEGATIVE); URINE KETONE NEGATIVE (NEGATIVE); URINE LEUK ESTERASE 2+ (NEGATIVE); URINE NITRITE NEGATIVE (NEGATIVE); URINE PROTEIN TRACE (NEGATIVE); URINE RBC 37 /uL (0-23.9); URINE UROBILINOGEN 0.2 mg/dL (0.2-1.0); URINE WBC 1021 /uL (0-25.8)
[2023-07-02] MEDS ORDERED: morphine CARPU-JECT 2 MG/1 ML DISP.SYRIN IVPUSH ONE ×2 (13:18→15:02)
[2023-07-02 14:38] LABS: POTASSIUM 4.6 mmol/L (3.5-5.1)
[2023-07-02 14:40] LABS: ALBUMIN 2.7 g/dl (3.4-5.0); BLOOD UREA NITROGEN 37.5 mg/dL (7-18); CALCIUM 9.8 mg/dL (8.5-10.1)
[2023-07-02 14:43] LABS: CREATININE 1.3 mg/dL (0.55-1.3)
[2023-07-02 14:45] LABS: BILIRUBIN,TOTAL 0.4 mg/dL (0.2-1); TOT PROT 6.6 g/dl (6.4-8.2)
[2023-07-02] MEDS ORDERED: CEFTRIAXONE 1 GM/50 ML BAG ONE (15:00)
[2023-07-02 16:33] LABS: BASO % 0.6 % (0-2.0); HEMATOCRIT 26.2 % (32.4-45.2); HEMOGLOBIN 8.5 GM/dL (10.7-15.3); MCHC 32.5 g/dl (32.0-36.0); MEAN CELL VOLUME 86.4 fl (80-96); MEAN PLT VOLUME 7.1 fl (7.5-11.1); MONO % 13.9 % (3.8-10.2); NEUT % 72.5 % (42.8-82.8); PLATELET COUNT 295 10^3/uL (134-434); RBC 3.03 M/mm3 (3.60-5.2); RDW 19.3 % (11.6-15.6); WHITE BLOOD COUNT 5.4 K/mm3 (4.0-10.0)
[2023-07-02] MEDS ORDERED: LACTATED RINGERS SOLUTION 1,000 ML IV SCH (20:30)
[2023-07-02] MEDS ORDERED: ENOXAPARIN NA (PORCINE) 40 MG/0.4 ML DISP.SYRIN SQ SCH (20:30)
[2023-07-02] MEDS ORDERED: ENOXAPARIN NA (PORCINE) 40 MG/0.4 ML DISP.SYRIN SQ ONE (20:34)
[2023-07-02 21:44] LABS: INR 1.19 (0.83-1.09); PROTHROMBIN TIME (PATIENT) 13.8 SEC (9.7-13.0)
[2023-07-02 21:47] LABS: ACTIVATED PTT 34.1 SECONDS (25.2-36.5)
[2023-07-02] MEDS ORDERED: HEPARIN NA (PORCINE) 5,000 UNITS/ML 1ML VIAL IVPUSH PRN ×2 (23:26)
[2023-07-02] MEDS ORDERED: HEPARIN SOD,PORK IN 0.45% NACL 25,000 UNIT/500 ML INFUS.BAG IVPB SCH (23:30)
[2023-07-03] MEDS ORDERED: HEPARIN NA (PORCINE) 5,000 UNITS/ML 1ML VIAL SQ SCH (07:00)
[2023-07-03 08:55] LABS: HEMATOCRIT 24.4 % (32.4-45.2); HEMOGLOBIN 7.8 GM/dL (10.7-15.3); MCH 27.5 pg (25.7-33.7); MCHC 31.9 g/dl (32.0-36.0); MEAN CELL VOLUME 86.1 fl (80-96); MEAN PLT VOLUME 7.4 fl (7.5-11.1); PLATELET COUNT 304 10^3/uL (134-434); RBC 2.83 M/mm3 (3.60-5.2); RDW 19.1 % (11.6-15.6); WHITE BLOOD COUNT 4.8 K/mm3 (4.0-10.0)
[2023-07-03 09:12] LABS: POTASSIUM 3.7 mmol/L (3.5-5.1)
[2023-07-03 09:14] LABS: CALCIUM 9.2 mg/dL (8.5-10.1)
[2023-07-03 09:15] LABS: BLOOD UREA NITROGEN 28.9 mg/dL (7-18)
[2023-07-03 09:18] LABS: CREATININE 0.9 mg/dL (0.55-1.3)
[2023-07-03 09:19] LABS: BILIRUBIN,TOTAL 0.5 mg/dL (0.2-1); TOT PROT 5.1 g/dl (6.4-8.2)
[2023-07-03 09:32] LABS: ALBUMIN 2.1 g/dl (3.4-5.0)
[2023-07-03] MEDS ORDERED: morphine SULFATE 4 MG/ML VIAL IVPUSH ONE (09:45)
[2023-07-03] MEDS: VALSARTAN 80 MG TABLET PO SCH (09:47)
[2023-07-03] MEDS: ATORVASTATIN CA 10 MG TABLET (FP) PO SCH (09:47)
[2023-07-03] MEDS ORDERED: FUROSEMIDE 20 MG TABLET (FP) PO SCH (10:00)
[2023-07-03] MEDS ORDERED: ACETAMINOPHEN 325 MG TABLET (FP) PO ONE (12:19)
[2023-07-03] MEDS ORDERED: CEFTRIAXONE 1 GM in DEXTROSE 5%-WATER - 50 ML IVPB SCH (15:00)
[2023-07-04 07:53] LABS: BASO % 0.2 % (0-2.0); EOS % 3.3 % (0-4.5); HEMATOCRIT 29.2 % (32.4-45.2); HEMOGLOBIN 9.9 GM/dL (10.7-15.3); LYMPH % 11.6 % (8-40); MCH 29.2 pg (25.7-33.7); MCHC 33.8 g/dl (32.0-36.0); MEAN CELL VOLUME 86.2 fl (80-96); MEAN PLT VOLUME 7.6 fl (7.5-11.1); MONO % 15.9 % (3.8-10.2); PLATELET COUNT 266 10^3/uL (134-434); RBC 3.39 M/mm3 (3.60-5.2); WHITE BLOOD COUNT 5.3 K/mm3 (4.0-10.0)
[2023-07-04 08:05] LABS: POTASSIUM 3.9 mmol/L (3.5-5.1)
[2023-07-04] MEDS ORDERED: oxyCODONE HCL 5 MG TABLET PO PRN (08:05)
[2023-07-04] MEDS ORDERED: ACETAMINOPHEN 325 MG TABLET (FP) PO PRN ×2 (08:05→16:28)
[2023-07-04 08:07] LABS: ALBUMIN 2.1 g/dl (3.4-5.0); BLOOD UREA NITROGEN 21.7 mg/dL (7-18); CALCIUM 8.9 mg/dL (8.5-10.1)
[2023-07-04 08:11] LABS: CREATININE 0.9 mg/dL (0.55-1.3)
[2023-07-04 08:12] LABS: BILIRUBIN,TOTAL 0.8 mg/dL (0.2-1); TOT PROT 5.4 g/dl (6.4-8.2)
[2023-07-04] MEDS ORDERED: SODIUM CHLORIDE 1,000 ML IV SCH ×3 (09:15→16:28)
[2023-07-04] MEDS: VALSARTAN 80 MG TABLET PO SCH (09:16)
[2023-07-04] MEDS: ATORVASTATIN CA 10 MG TABLET (FP) PO SCH (09:20)
[2023-07-04] MEDS ORDERED: PHENYLEPHRINE HCL 10 MG/1 ML SINGLE DOSE VIAL ONE (09:41)
[2023-07-04] MEDS ORDERED: NOREPINEPHRINE BITARTRATE 4 MG/4 ML ML IV ONE (09:42)
[2023-07-04] MEDS ORDERED: VASopressin 20 UNITS/ML VIAL IV ONE ×2 (09:43→10:00)
[2023-07-04] MEDS ORDERED: MIDAZOLAM HCL 2 MG/2 ML SINGLE DOSE VIAL ONE (09:55)
[2023-07-04] MEDS ORDERED: VALSARTAN 80 MG TABLET PO SCH (10:00)
[2023-07-04] MEDS ORDERED: ESMOLOL HCL 100,000 MCG/10 ML VIAL ONE (10:00)
[2023-07-04] MEDS ORDERED: LIDOCAINE HCL/PF 2% SDV 5ML VIAL ONE (10:25)
[2023-07-04] MEDS ORDERED: ceFAZolin 2 GRAM PREMIX BAG IVPB ONE (11:45)
[2023-07-04] MEDS ORDERED: VANCOMYCIN 1,000 MG VIAL (RESTRICTED TO ID ONLY) IVPB ONE ×2 (11:45→13:44)
[2023-07-04] MEDS ORDERED: HYDROmorphone HCl 2 MG/ML VIAL ONE (12:33)
[2023-07-04] MEDS ORDERED: VANCOMYCIN 1,000 MG VIAL (RESTRICTED TO ID ONLY) ONE (13:03)
[2023-07-04] MEDS ORDERED: BUPIVACAINE HCL/PF 0.5% (5MG/ML) 10 ML VIAL ONE (13:04)
[2023-07-04] MEDS ORDERED: SUGAMMADEX SODIUM 200 MG/2 ML VIAL ONE (13:09)
[2023-07-04] MEDS ORDERED: ROCURONIUM BROMIDE 50 MG/5 ML SYRINGE ONE (13:17)
[2023-07-04] MEDS ORDERED: MAGNESIUM SULF 50% (8.12 MEQ/2 ML-1 GM VIAL) ONE (13:19)
[2023-07-04] MEDS ORDERED: KETOROLAC TROMETHAMINE 30 MG/1 ML VIAL IM ONE (13:45)
[2023-07-04] MEDS ORDERED: BUPIVACAINE HCL/PF 0.5% (5 MG/ML) 30 ML VIAL IJ ONE (13:45)
[2023-07-04] MEDS ORDERED: ACETAMINOPHEN INJECTION 100 ML IVPB ONE (13:56)
[2023-07-04] MEDS ORDERED: LACTATED RINGERS SOLUTION 1,000 ML IV SCH ×2 (15:00→16:30)
[2023-07-04 16:12] LABS: HEMATOCRIT 30.2 % (32.4-45.2); HEMOGLOBIN 9.9 GM/dL (10.7-15.3); MCH 28.4 pg (25.7-33.7); MCHC 32.7 g/dl (32.0-36.0); MEAN CELL VOLUME 86.9 fl (80-96); MEAN PLT VOLUME 7.2 fl (7.5-11.1); PLATELET COUNT 275 10^3/uL (134-434); RBC 3.47 M/mm3 (3.60-5.2); RDW 17.7 % (11.6-15.6); WHITE BLOOD COUNT 9.5 K/mm3 (4.0-10.0)
[2023-07-04] MEDS ORDERED: MAG HYDROX/AL HYDROX/SIMETH 30 ML UNIT-DOSE CUP PO PRN (16:25)
[2023-07-04] MEDS ORDERED: ONDANSETRON 4 MG/2 ML VIAL IVPUSH PRN (16:25)
[2023-07-04] MEDS: LACTATED RINGERS SOLUTION 1,000 ML IV SCH (17:24)
[2023-07-04] MEDS: CEFAZOLIN SODIUM 2 GM in DEXTROSE 5%-WATER 100 ML IVPB SCH (18:31)
[2023-07-04] MEDS: GABAPENTIN 300 MG CAPSULE PO SCH (22:36)
[2023-07-04] MEDS: SENNOSIDES/DOCUSATE COMBO (SENNA PLUS) TABLET (UD) PO SCH (22:36)
[2023-07-05] MEDS: CEFAZOLIN SODIUM 2 GM in DEXTROSE 5%-WATER 100 ML IVPB SCH ×2 (02:34→13:24)
[2023-07-05] MEDS ORDERED: SODIUM CHLORIDE 0.9% 500 ML INFUS.BAG IV ONE (06:14)
[2023-07-05] MEDS: LACTATED RINGERS SOLUTION 1,000 ML IV SCH (06:47)
[2023-07-05 07:07] LABS: POTASSIUM 4.2 mmol/L (3.5-5.1)
[2023-07-05 07:08] LABS: CALCIUM 8.8 mg/dL (8.5-10.1)
[2023-07-05 07:10] LABS: ALBUMIN 1.9 g/dl (3.4-5.0); MAGNESIUM 1.8 mg/dL (1.8-2.4)
[2023-07-05 07:12] LABS: PHOSPHOROUS 2.7 mg/dL (2.5-4.9)
[2023-07-05 07:15] LABS: BILIRUBIN,TOTAL 0.2 mg/dL (0.2-1)
[2023-07-05 07:16] LABS: TOT PROT 4.9 g/dl (6.4-8.2)
[2023-07-05] MEDS ORDERED: SODIUM CHLORIDE 500 ML IV STA ×2 (07:24→10:08)
[2023-07-05 07:26] LABS: HEMOGLOBIN 9.1 GM/dL (10.7-15.3); MCH 29.1 pg (25.7-33.7); MCHC 33.5 g/dl (32.0-36.0); MEAN CELL VOLUME 86.8 fl (80-96); MEAN PLT VOLUME 7.6 fl (7.5-11.1); PLATELET COUNT 243 10^3/uL (134-434); RBC 3.12 M/mm3 (3.60-5.2); RDW 17.3 % (11.6-15.6); WHITE BLOOD COUNT 10.6 K/mm3 (4.0-10.0)
[2023-07-05] MEDS ORDERED: FUROSEMIDE 20 MG TABLET (FP) PO SCH (10:00)
[2023-07-05] MEDS ORDERED: ATORVASTATIN CA 10 MG TABLET (FP) PO SCH (10:00)
[2023-07-05] MEDS: oxyCODONE HCL 5 MG TABLET PO PRN ×2 (10:41→21:37)
[2023-07-05] MEDS: SENNOSIDES/DOCUSATE COMBO (SENNA PLUS) TABLET (UD) PO SCH ×2 (10:42→21:40)
[2023-07-05] MEDS: ENOXAPARIN NA (PORCINE) 30 MG/0.3 ML DISP.SYRIN SQ SCH (10:42)
[2023-07-05] MEDS: PANTOPRAZOLE 40 MG TABLET PO SCH (10:42)
[2023-07-05] MEDS ORDERED: CEFAZOLIN SODIUM 2 GM VIAL ONE (13:10)
[2023-07-05] MEDS: GABAPENTIN 300 MG CAPSULE PO SCH ×2 (13:24→21:40)
[2023-07-05] MEDS: MULTIVITAMINS (DAILY MVI) TABLET (FP) PO SCH (13:24)
[2023-07-05] MEDS: ACETAMINOPHEN 325 MG TABLET (FP) PO SCH ×2 (16:52→22:53)
[2023-07-05] MEDS: MIDODRINE HCL 2.5 MG TABLET PO SCH (18:28)
[2023-07-05 18:49] LABS: LACTIC ACID 3.8 mmol/L (0.4-2.0)
[2023-07-05] MEDS ORDERED: HYDROCORTISONE SOD SUCCINATE 100 MG/2 ML VIAL IVPUSH ONE ×2 (19:38→21:00)
[2023-07-05] MEDS ORDERED: VANCOMYCIN 1 GM PREMIX - 1 GM/200 ML BAG IVPB SCH ×2 (19:49→20:30)
[2023-07-05] MEDS: PIPERACILLIN/TAZOB 3.375 GM 3.375 GM in DEXTROSE 5%-WATER - 50 ML IVPB SCH (21:40)
[2023-07-06] MEDS ORDERED: HYDROCORTISONE SOD SUCCINATE 100 MG/2 ML VIAL IVPUSH SCH (04:00)
[2023-07-06] MEDS: PIPERACILLIN/TAZOB 3.375 GM 3.375 GM in DEXTROSE 5%-WATER - 50 ML IVPB SCH ×4 (04:57→19:49)
[2023-07-06] MEDS: LACTATED RINGERS SOLUTION 1,000 ML IV SCH ×2 (05:44→17:18)
[2023-07-06] MEDS: oxyCODONE HCL 5 MG TABLET PO PRN ×2 (05:45→21:36)
[2023-07-06] MEDS: ACETAMINOPHEN 325 MG TABLET (FP) PO SCH ×3 (05:46→21:35)
[2023-07-06 07:55] LABS: HEMOGLOBIN 7.2 GM/dL (10.7-15.3); MCH 28.5 pg (25.7-33.7); MCHC 32.6 g/dl (32.0-36.0); MEAN CELL VOLUME 87.3 fl (80-96); MEAN PLT VOLUME 7.6 fl (7.5-11.1); PLATELET COUNT 242 10^3/uL (134-434); RBC 2.52 M/mm3 (3.60-5.2); RDW 17.8 % (11.6-15.6); WHITE BLOOD COUNT 9.3 K/mm3 (4.0-10.0)
[2023-07-06 08:24] LABS: POTASSIUM 4.1 mmol/L (3.5-5.1)
[2023-07-06 08:52] LABS: BILIRUBIN,TOTAL 0.2 mg/dL (0.2-1); BLOOD UREA NITROGEN 21.8 mg/dL (7-18); PHOSPHOROUS 2.3 mg/dL (2.5-4.9); TOT PROT 5.2 g/dl (6.4-8.2)
[2023-07-06 08:54] LABS: CALCIUM 8.3 mg/dL (8.5-10.1)
[2023-07-06 08:55] LABS: MAGNESIUM 1.9 mg/dL (1.8-2.4)
[2023-07-06] MEDS ORDERED: ACETAMINOPHEN 1000 MG/100 ML BAG IVPB ONE ×2 (09:45→11:30)
[2023-07-06 10:06] LABS: RETICULOCYTES 1.03 % (0.5-1.5)
[2023-07-06] MEDS: MULTIVITAMINS (DAILY MVI) TABLET (FP) PO SCH (11:23)
[2023-07-06] MEDS: PANTOPRAZOLE 40 MG TABLET PO SCH (11:24)
[2023-07-06] MEDS: predniSONE 20 MG TABLET (UD) PO SCH (11:24)
[2023-07-06] MEDS: MIDODRINE HCL 2.5 MG TABLET PO SCH ×3 (11:24→18:34)
[2023-07-06] MEDS: GABAPENTIN 300 MG CAPSULE PO SCH ×2 (11:24→21:35)
[2023-07-06] MEDS: SENNOSIDES/DOCUSATE COMBO (SENNA PLUS) TABLET (UD) PO SCH ×2 (11:25→21:35)
[2023-07-06] MEDS: ENOXAPARIN NA (PORCINE) 30 MG/0.3 ML DISP.SYRIN SQ SCH (11:28)
[2023-07-06] MEDS ORDERED: HEPARIN NA (PORCINE) 5,000 UNITS/ML 1ML VIAL IVPUSH PRN (16:01)
[2023-07-06] MEDS ORDERED: HEPARIN - 25,000 UNIT in SODIUM CHLORIDE 495 ML IV SCH (16:30)
[2023-07-06 17:13] LABS: HEMATOCRIT 25.5 % (32.4-45.2); HEMOGLOBIN 8.2 GM/dL (10.7-15.3); MCH 28.4 pg (25.7-33.7); MCHC 32.3 g/dl (32.0-36.0); MEAN PLT VOLUME 7.6 fl (7.5-11.1); PLATELET COUNT 244 10^3/uL (134-434); RDW 18.1 % (11.6-15.6)
[2023-07-06] MEDS: HEPARIN - 25,000 UNIT in SODIUM CHLORIDE 495 ML IV SCH (17:49)
[2023-07-07] MEDS: HEPARIN NA (PORCINE) 5,000 UNITS/ML 1ML VIAL IVPUSH PRN ×2 (00:43→23:33)
[2023-07-07] MEDS: ACETAMINOPHEN 325 MG TABLET (FP) PO SCH ×3 (05:10→21:10)
[2023-07-07] MEDS ORDERED: BISACODYL 5 MG TABLET.DR (FP) PO PRN (08:30)
[2023-07-07] MEDS: GABAPENTIN 300 MG CAPSULE PO SCH (09:01)
[2023-07-07] MEDS: predniSONE 20 MG TABLET (UD) PO SCH (09:01)
[2023-07-07] MEDS: SENNOSIDES/DOCUSATE COMBO (SENNA PLUS) TABLET (UD) PO SCH ×2 (09:01→21:09)
[2023-07-07] MEDS: PANTOPRAZOLE 40 MG TABLET PO SCH (09:01)
[2023-07-07] MEDS: MULTIVITAMINS (DAILY MVI) TABLET (FP) PO SCH (09:48)
[2023-07-07] MEDS: MIDODRINE HCL 2.5 MG TABLET PO SCH ×3 (09:48→17:11)
[2023-07-07 09:54] LABS: HEMATOCRIT 24.9 % (32.4-45.2); HEMOGLOBIN 8.1 GM/dL (10.7-15.3); MCH 28.8 pg (25.7-33.7); MCHC 32.5 g/dl (32.0-36.0); MEAN CELL VOLUME 88.6 fl (80-96); MEAN PLT VOLUME 7.5 fl (7.5-11.1); PLATELET COUNT 279 10^3/uL (134-434); RBC 2.81 M/mm3 (3.60-5.2); WHITE BLOOD COUNT 9.4 K/mm3 (4.0-10.0)
[2023-07-07 11:25] LABS: ALK PHOS 80 U/L (45-117); ANION GAP 7 mmol/L (4-13); BILIRUBIN,TOTAL 0.2 mg/dL (0.2-1); BLOOD UREA NITROGEN 24.3 mg/dL (7-18); CALCIUM 8.7 mg/dL (8.5-10.1); CHLORIDE 107 mmol/L (98-107); CO2 26 mmol/L (21-32); GLUCOSE,RANDOM 74 mg/dL (74-106); MAGNESIUM 1.9 mg/dL (1.8-2.4); PHOSPHOROUS 1.3 mg/dL (2.5-4.9); POTASSIUM 3.5 mmol/L (3.5-5.1); SGOT/AST 19 U/L (15-37); SGPT/ALT < 6 U/L (13-61); SODIUM 140 mmol/L (136-145); TOT PROT 5.2 g/dl (6.4-8.2)
[2023-07-07] MEDS: HEPARIN - 25,000 UNIT in SODIUM CHLORIDE 495 ML IV SCH ×2 (16:30→21:12)
[2023-07-07] MEDS: LACTATED RINGERS SOLUTION 1,000 ML IV SCH (21:09)
[2023-07-08] MEDS: oxyCODONE HCL 5 MG TABLET PO PRN ×3 (00:43→22:58)
[2023-07-08] MEDS: ACETAMINOPHEN 325 MG TABLET (FP) PO SCH ×3 (05:50→21:11)
[2023-07-08] MEDS ORDERED: BISACODYL 5 MG TABLET.DR (FP) PO ONE (07:42)
[2023-07-08] MEDS: MIDODRINE HCL 2.5 MG TABLET PO SCH ×3 (09:12→17:02)
[2023-07-08] MEDS: predniSONE 20 MG TABLET (UD) PO SCH (09:12)
[2023-07-08] MEDS: SENNOSIDES/DOCUSATE COMBO (SENNA PLUS) TABLET (UD) PO SCH ×2 (09:12→21:14)
[2023-07-08] MEDS: MULTIVITAMINS (DAILY MVI) TABLET (FP) PO SCH (09:12)
[2023-07-08] MEDS: PANTOPRAZOLE 40 MG TABLET PO SCH (09:12)
[2023-07-08 12:42] LABS: HEMOGLOBIN 7.3 GM/dL (10.7-15.3); MCH 29.2 pg (25.7-33.7); MEAN CELL VOLUME 88.5 fl (80-96); MEAN PLT VOLUME 7.4 fl (7.5-11.1); PLATELET COUNT 263 10^3/uL (134-434); RBC 2.49 M/mm3 (3.60-5.2); WHITE BLOOD COUNT 7.7 K/mm3 (4.0-10.0)
[2023-07-08 13:01] LABS: POTASSIUM 3.9 mmol/L (3.5-5.1)
[2023-07-08 13:06] LABS: CALCIUM 8.6 mg/dL (8.5-10.1); MAGNESIUM 1.7 mg/dL (1.8-2.4)
[2023-07-08 13:08] LABS: BLOOD UREA NITROGEN 22.8 mg/dL (7-18)
[2023-07-08 13:10] LABS: ALBUMIN 1.9 g/dl (3.4-5.0); BILIRUBIN,TOTAL 0.3 mg/dL (0.2-1); PHOSPHOROUS 1.4 mg/dL (2.5-4.9); TOT PROT 4.9 g/dl (6.4-8.2)
[2023-07-08] MEDS ORDERED: MAGNESIUM HYDROX 2400MG/30ML ORAL SUSPENSION 30 ML CUP PO ONE (16:01)
[2023-07-08] MEDS ORDERED: MAGNESIUM SULF 50% (8.12 MEQ/2 ML-1 GM VIAL) IVPB ONE (16:15)
[2023-07-08] MEDS: HEPARIN - 25,000 UNIT in SODIUM CHLORIDE 495 ML IV SCH ×2 (17:13→22:48)
[2023-07-08 19:00] LABS: INR 1.1 (0.83-1.09); PROTHROMBIN TIME (PATIENT) 12.8 SEC (9.7-13.0)
[2023-07-08] MEDS ORDERED: MAGNESIUM CITRATE 300 ML BOTTLE PO ONE (19:00)
[2023-07-09] MEDS ORDERED: oxyCODONE HCL 5 MG TABLET PO ONE (02:14)
[2023-07-09] MEDS ORDERED: ACETAMINOPHEN 1000 MG/100 ML BAG IVPB ONE (03:00)
[2023-07-09] MEDS: ACETAMINOPHEN 325 MG TABLET (FP) PO SCH ×3 (06:03→21:46)
[2023-07-09] MEDS ORDERED: BISACODYL 5 MG TABLET.DR (FP) PO ONE (08:09)
[2023-07-09] MEDS ORDERED: ALPRAZolam 0.25 MG TABLET PO ONE (09:27)
[2023-07-09] MEDS: oxyCODONE HCL 5 MG TABLET PO PRN (09:28)
[2023-07-09] MEDS: MIDODRINE HCL 2.5 MG TABLET PO SCH ×3 (09:35→21:13)
[2023-07-09] MEDS: predniSONE 20 MG TABLET (UD) PO SCH (09:35)
[2023-07-09] MEDS: MULTIVITAMINS (DAILY MVI) TABLET (FP) PO SCH (09:36)
[2023-07-09] MEDS: SENNOSIDES/DOCUSATE COMBO (SENNA PLUS) TABLET (UD) PO SCH ×3 (09:36→21:55)
[2023-07-09] MEDS: PANTOPRAZOLE 40 MG TABLET PO SCH (09:36)
[2023-07-09] MEDS ORDERED: oxyCODONE HCL 5 MG TABLET PO PRN (09:44)
[2023-07-09 09:49] LABS: BASO % 0.2 % (0-2.0); EOS % 1.8 % (0-4.5); HEMATOCRIT 20.1 % (32.4-45.2); LYMPH % 12.5 % (8-40); MCH 29.7 pg (25.7-33.7); MCHC 33.6 g/dl (32.0-36.0); MEAN CELL VOLUME 88.2 fl (80-96); MEAN PLT VOLUME 7.5 fl (7.5-11.1); MONO % 11.8 % (3.8-10.2); NEUT % 73.7 % (42.8-82.8); PLATELET COUNT 280 10^3/uL (134-434); RBC 2.28 M/mm3 (3.60-5.2); RDW 18.1 % (11.6-15.6); WHITE BLOOD COUNT 8.8 K/mm3 (4.0-10.0)
[2023-07-09 10:02] LABS: HEMOGLOBIN 6.7 GM/dL (10.7-15.3)
[2023-07-09 10:26] LABS: MAGNESIUM 2.2 mg/dL (1.8-2.4)
[2023-07-09 10:27] LABS: PHOSPHOROUS 1.4 mg/dL (2.5-4.9)
[2023-07-09 10:29] LABS: BLOOD UREA NITROGEN 22.6 mg/dL (7-18)
[2023-07-09 10:30] LABS: BILIRUBIN,TOTAL 0.4 mg/dL (0.2-1); CALCIUM 8.5 mg/dL (8.5-10.1); CREATININE 0.9 mg/dL (0.55-1.3)
[2023-07-09] MEDS ORDERED: FUROSEMIDE 40 MG/4 ML INJECTABLE VIAL IVPUSH ONE ×3 (16:28→23:15)
[2023-07-09] MEDS: BACITRACIN ZINC 15 GM TUBE TOPICAL OINTMENT TP SCH (17:04)
[2023-07-09] MEDS: ALPRAZolam 1 MG TABLET PO PRN (21:48)
[2023-07-09 23:26] LABS: ARTERIAL BLD GAS O2 SATURATION 98.1 % (95-98); ARTERIAL BLOOD GAS BASE EXCESS -0.2 mmol/L (-2-2); ARTERIAL BLOOD GAS PO2 111.1 mmHg (80-100); ARTERIAL BLOOD GAS pH 7.413 (7.350-7.450)
[2023-07-09 23:27] LABS: ALLENS TEST POSITIVE
[2023-07-10 00:37] LABS: HEMATOCRIT 28.7 % (32.4-45.2); HEMOGLOBIN 9.2 GM/dL (10.7-15.3); MCH 28.3 pg (25.7-33.7); MEAN CELL VOLUME 88.4 fl (80-96); PLATELET COUNT 286 10^3/uL (134-434); RBC 3.25 M/mm3 (3.60-5.2); RDW 17.3 % (11.6-15.6); WHITE BLOOD COUNT 13.6 K/mm3 (4.0-10.0)
[2023-07-10] MEDS: ACETAMINOPHEN 325 MG TABLET (FP) PO SCH ×3 (06:16→21:01)
[2023-07-10] MEDS ORDERED: FUROSEMIDE 40 MG/4 ML INJECTABLE VIAL IVPUSH SCH ×3 (10:00→12:00)
[2023-07-10 10:09] LABS: BASO % 0.6 % (0-2.0); EOS % 0.2 % (0-4.5); HEMOGLOBIN 8.4 GM/dL (10.7-15.3); LYMPH % 4.6 % (8-40); MCH 28.6 pg (25.7-33.7); MCHC 32.3 g/dl (32.0-36.0); MEAN CELL VOLUME 88.6 fl (80-96); MEAN PLT VOLUME 7.8 fl (7.5-11.1); MONO % 8.9 % (3.8-10.2); NEUT % 85.7 % (42.8-82.8); PLATELET COUNT 271 10^3/uL (134-434); RBC 2.94 M/mm3 (3.60-5.2); RDW 17.3 % (11.6-15.6); WHITE BLOOD COUNT 17.5 K/mm3 (4.0-10.0)
[2023-07-10 10:29] LABS: POTASSIUM 4.2 mmol/L (3.5-5.1)
[2023-07-10 10:36] LABS: BLOOD UREA NITROGEN 24.2 mg/dL (7-18); CALCIUM 8.9 mg/dL (8.5-10.1)
[2023-07-10 10:41] LABS: BILIRUBIN,TOTAL 0.5 mg/dL (0.2-1); TOT PROT 5.2 g/dl (6.4-8.2)
[2023-07-10 10:57] LABS: N-TERMINAL BNP 52593.4 pg/ml (5-450)
[2023-07-10] MEDS: MULTIVITAMINS (DAILY MVI) TABLET (FP) PO SCH (11:20)
[2023-07-10] MEDS: SENNOSIDES/DOCUSATE COMBO (SENNA PLUS) TABLET (UD) PO SCH ×2 (11:20→21:01)
[2023-07-10] MEDS: predniSONE 20 MG TABLET (UD) PO SCH (11:20)
[2023-07-10] MEDS: MIDODRINE HCL 2.5 MG TABLET PO SCH ×3 (11:20→17:29)
[2023-07-10] MEDS: PANTOPRAZOLE 40 MG TABLET PO SCH (11:21)
[2023-07-10] MEDS: BACITRACIN ZINC 15 GM TUBE TOPICAL OINTMENT TP SCH (11:21)
[2023-07-10] MEDS: FUROSEMIDE 40 MG/4 ML INJECTABLE VIAL IVPUSH SCH ×2 (12:22→17:29)
[2023-07-10] MEDS: ALPRAZolam 1 MG TABLET PO PRN (14:51)
[2023-07-10] MEDS: CEFTRIAXONE 1 GM in DEXTROSE 5%-WATER - 50 ML IVPB SCH (20:39)
[2023-07-10 21:56] LABS: BASO % 0.2 % (0-2.0); HEMATOCRIT 24.6 % (32.4-45.2); HEMOGLOBIN 7.8 GM/dL (10.7-15.3); LYMPH % 4.6 % (8-40); MCH 28.1 pg (25.7-33.7); MCHC 31.9 g/dl (32.0-36.0); MEAN CELL VOLUME 88.2 fl (80-96); MEAN PLT VOLUME 7.5 fl (7.5-11.1); MONO % 8.4 % (3.8-10.2); NEUT % 86.8 % (42.8-82.8); PLATELET COUNT 237 10^3/uL (134-434); RBC 2.79 M/mm3 (3.60-5.2); RDW 17.1 % (11.6-15.6); WHITE BLOOD COUNT 12.5 K/mm3 (4.0-10.0)
[2023-07-11] MEDS: FUROSEMIDE 40 MG/4 ML INJECTABLE VIAL IVPUSH SCH ×2 (06:33→17:59)
[2023-07-11] MEDS: ACETAMINOPHEN 325 MG TABLET (FP) PO SCH ×3 (06:34→21:57)
[2023-07-11 08:49] LABS: HEMATOCRIT 25.8 % (32.4-45.2); HEMOGLOBIN 8.4 GM/dL (10.7-15.3); MCH 28.8 pg (25.7-33.7); MCHC 32.7 g/dl (32.0-36.0); MEAN CELL VOLUME 88.1 fl (80-96); MEAN PLT VOLUME 7.5 fl (7.5-11.1); PLATELET COUNT 256 10^3/uL (134-434); RBC 2.93 M/mm3 (3.60-5.2); RDW 17.6 % (11.6-15.6); WHITE BLOOD COUNT 12.8 K/mm3 (4.0-10.0)
[2023-07-11 09:14] LABS: POTASSIUM 3.6 mmol/L (3.5-5.1)
[2023-07-11 09:19] LABS: ALBUMIN 2.1 g/dl (3.4-5.0); BLOOD UREA NITROGEN 19.5 mg/dL (7-18)
[2023-07-11 09:20] LABS: MAGNESIUM 2.1 mg/dL (1.8-2.4)
[2023-07-11 09:22] LABS: CREATININE 0.9 mg/dL (0.55-1.3)
[2023-07-11 09:23] LABS: PHOSPHOROUS 2.3 mg/dL (2.5-4.9)
[2023-07-11 09:24] LABS: BILIRUBIN,TOTAL 0.6 mg/dL (0.2-1); TOT PROT 5.5 g/dl (6.4-8.2)
[2023-07-11] MEDS ORDERED: ONDANSETRON 4 MG/2 ML VIAL IVPUSH PRN (09:49)
[2023-07-11] MEDS ORDERED: MAG HYDROX/AL HYDROX/SIMETH 30 ML UNIT-DOSE CUP PO PRN (09:49)
[2023-07-11] MEDS: PANTOPRAZOLE 40 MG TABLET PO SCH (10:58)
[2023-07-11] MEDS: BACITRACIN ZINC 15 GM TUBE TOPICAL OINTMENT TP SCH (10:58)
[2023-07-11] MEDS: MIDODRINE HCL 2.5 MG TABLET PO SCH ×3 (10:58→18:02)
[2023-07-11] MEDS: predniSONE 20 MG TABLET (UD) PO SCH (10:58)
[2023-07-11] MEDS: SENNOSIDES/DOCUSATE COMBO (SENNA PLUS) TABLET (UD) PO SCH ×2 (10:58→22:01)
[2023-07-11] MEDS: MULTIVITAMINS (DAILY MVI) TABLET (FP) PO SCH (10:59)
[2023-07-11] MEDS: CEFTRIAXONE 1 GM in DEXTROSE 5%-WATER - 50 ML IVPB SCH (10:59)
[2023-07-11] MEDS: QUEtiapine FUMARATE 25 MG TABLET PO SCH (22:01)
[2023-07-12] MEDS: FUROSEMIDE 40 MG/4 ML INJECTABLE VIAL IVPUSH SCH ×2 (05:51→19:00)
[2023-07-12] MEDS: ACETAMINOPHEN 325 MG TABLET (FP) PO SCH ×3 (05:53→21:15)
[2023-07-12 08:33] LABS: HEMATOCRIT 23.5 % (32.4-45.2); HEMOGLOBIN 7.6 GM/dL (10.7-15.3); MCH 29.1 pg (25.7-33.7); MCHC 32.5 g/dl (32.0-36.0); MEAN CELL VOLUME 89.5 fl (80-96); MEAN PLT VOLUME 7.4 fl (7.5-11.1); PLATELET COUNT 231 10^3/uL (134-434); RBC 2.63 M/mm3 (3.60-5.2); RDW 17.8 % (11.6-15.6); WHITE BLOOD COUNT 9.9 K/mm3 (4.0-10.0)
[2023-07-12 08:41] LABS: POTASSIUM 3.2 mmol/L (3.5-5.1)
[2023-07-12 08:45] LABS: ALBUMIN 1.9 g/dl (3.4-5.0); CALCIUM 9.2 mg/dL (8.5-10.1)
[2023-07-12 08:46] LABS: MAGNESIUM 2.2 mg/dL (1.8-2.4)
[2023-07-12 08:49] LABS: CREATININE 0.9 mg/dL (0.55-1.3)
[2023-07-12 08:50] LABS: BILIRUBIN,TOTAL 0.5 mg/dL (0.2-1)
[2023-07-12] MEDS: BACITRACIN ZINC 15 GM TUBE TOPICAL OINTMENT TP SCH (10:00)
[2023-07-12] MEDS: MIDODRINE HCL 2.5 MG TABLET PO SCH ×3 (11:01→19:01)
[2023-07-12] MEDS: PANTOPRAZOLE 40 MG TABLET PO SCH (11:01)
[2023-07-12] MEDS: SENNOSIDES/DOCUSATE COMBO (SENNA PLUS) TABLET (UD) PO SCH ×2 (11:01→21:14)
[2023-07-12] MEDS: predniSONE 20 MG TABLET (UD) PO SCH (11:02)
[2023-07-12] MEDS: MULTIVITAMINS (DAILY MVI) TABLET (FP) PO SCH (11:02)
[2023-07-12 11:47] LABS: ARTERIAL BLD GAS O2 SATURATION 97.4 % (95-98); ARTERIAL BLOOD GAS BASE EXCESS 7.1 mmol/L (-2-2); ARTERIAL BLOOD GAS PO2 87.3 mmHg (80-100); ARTERIAL BLOOD GAS pH 7.521 (7.350-7.450)
[2023-07-12 11:56] LABS: ALLENS TEST POSITIVE
[2023-07-12] MEDS ORDERED: morphine SULFATE 4 MG/ML VIAL IM ONE ×3 (13:16→13:45)
[2023-07-12] MEDS: QUEtiapine FUMARATE 25 MG TABLET PO SCH (21:15)
[2023-07-13] MEDS: FUROSEMIDE 40 MG/4 ML INJECTABLE VIAL IVPUSH SCH ×2 (05:07→18:47)
[2023-07-13] MEDS: ACETAMINOPHEN 325 MG TABLET (FP) PO SCH ×3 (05:11→21:34)
[2023-07-13 08:21] LABS: HEMATOCRIT 26.5 % (32.4-45.2); HEMOGLOBIN 8.6 GM/dL (10.7-15.3); MCH 29.3 pg (25.7-33.7); MCHC 32.3 g/dl (32.0-36.0); MEAN CELL VOLUME 90.6 fl (80-96); MEAN PLT VOLUME 7.9 fl (7.5-11.1); PLATELET COUNT 221 10^3/uL (134-434); RBC 2.93 M/mm3 (3.60-5.2); RDW 17.8 % (11.6-15.6); WHITE BLOOD COUNT 8.9 K/mm3 (4.0-10.0)
[2023-07-13 08:31] LABS: POTASSIUM 3.4 mmol/L (3.5-5.1)
[2023-07-13 08:40] LABS: BLOOD UREA NITROGEN 18.4 mg/dL (7-18); CALCIUM 8.4 mg/dL (8.5-10.1)
[2023-07-13 08:41] LABS: ALBUMIN 2.1 g/dl (3.4-5.0); MAGNESIUM 2.1 mg/dL (1.8-2.4)
[2023-07-13 08:44] LABS: CREATININE 0.9 mg/dL (0.55-1.3); PHOSPHOROUS 2.3 mg/dL (2.5-4.9)
[2023-07-13 08:45] LABS: BILIRUBIN,TOTAL 0.4 mg/dL (0.2-1); TOT PROT 5.5 g/dl (6.4-8.2)
[2023-07-13] MEDS: predniSONE 20 MG TABLET (UD) PO SCH (09:48)
[2023-07-13] MEDS: MULTIVITAMINS (DAILY MVI) TABLET (FP) PO SCH (09:48)
[2023-07-13] MEDS: PANTOPRAZOLE 40 MG TABLET PO SCH (09:48)
[2023-07-13] MEDS: MIDODRINE HCL 2.5 MG TABLET PO SCH ×3 (09:48→18:15)
[2023-07-13] MEDS: SENNOSIDES/DOCUSATE COMBO (SENNA PLUS) TABLET (UD) PO SCH ×2 (09:48→21:33)
[2023-07-13] MEDS: BACITRACIN ZINC 15 GM TUBE TOPICAL OINTMENT TP SCH (09:50)
[2023-07-13] MEDS ORDERED: BISACODYL 10 MG SUPP.RECT PR ONE (15:38)
[2023-07-13] MEDS: QUEtiapine FUMARATE 25 MG TABLET PO SCH (21:34)
[2023-07-13] MEDS ORDERED: NAPH,MB-DB/K PH,MBDB POWDER PACKET PO ONE (22:00)
[2023-07-14] MEDS: POTASSIUM CHLORIDE TABS 20 MEQ TABLET.ER (FP) PO SCH ×2 (00:21→12:32)
[2023-07-14] MEDS: ACETAMINOPHEN 325 MG TABLET (FP) PO SCH ×3 (06:02→21:39)
[2023-07-14] MEDS: FUROSEMIDE 40 MG/4 ML INJECTABLE VIAL IVPUSH SCH ×2 (06:12→17:45)
[2023-07-14 07:00] LABS: HEMATOCRIT 27.7 % (32.4-45.2); HEMOGLOBIN 8.9 GM/dL (10.7-15.3); MCH 29.1 pg (25.7-33.7); MCHC 32.2 g/dl (32.0-36.0); MEAN CELL VOLUME 90.3 fl (80-96); MEAN PLT VOLUME 8.1 fl (7.5-11.1); PLATELET COUNT 289 10^3/uL (134-434); RBC 3.06 M/mm3 (3.60-5.2); WHITE BLOOD COUNT 10.4 K/mm3 (4.0-10.0)
[2023-07-14 07:12] LABS: POTASSIUM 3.2 mmol/L (3.5-5.1)
[2023-07-14 07:14] LABS: CALCIUM 9.5 mg/dL (8.5-10.1)
[2023-07-14 07:15] LABS: BLOOD UREA NITROGEN 21.7 mg/dL (7-18); MAGNESIUM 2.1 mg/dL (1.8-2.4)
[2023-07-14 07:18] LABS: CREATININE 0.9 mg/dL (0.55-1.3); PHOSPHOROUS 2.3 mg/dL (2.5-4.9)
[2023-07-14 07:19] LABS: BILIRUBIN,TOTAL 0.6 mg/dL (0.2-1); TOT PROT 6.4 g/dl (6.4-8.2)
[2023-07-14 07:28] LABS: ALBUMIN 2.6 g/dl (3.4-5.0)
[2023-07-14] MEDS: PANTOPRAZOLE 40 MG TABLET PO SCH (12:31)
[2023-07-14] MEDS: SENNOSIDES/DOCUSATE COMBO (SENNA PLUS) TABLET (UD) PO SCH ×3 (12:31→21:39)
[2023-07-14] MEDS: MIDODRINE HCL 2.5 MG TABLET PO SCH ×3 (12:32→17:45)
[2023-07-14] MEDS: BACITRACIN ZINC 15 GM TUBE TOPICAL OINTMENT TP SCH (12:32)
[2023-07-14] MEDS: MULTIVITAMINS (DAILY MVI) TABLET (FP) PO SCH (12:32)
[2023-07-14] MEDS ORDERED: LIDOCAINE 5% TOPICAL PATCH TP SCH (16:45)
[2023-07-14] MEDS: LIDOCAINE 4% PATCH TP SCH (17:43)
[2023-07-14] MEDS: LIDOCAINE PATCH REMOVAL MC SCH (21:38)
[2023-07-14] MEDS: QUEtiapine FUMARATE 25 MG TABLET PO SCH (21:39)
[2023-07-14] MEDS ORDERED: POTASSIUM CHLORIDE TABS 20 MEQ TABLET.ER (FP) PO SCH (22:00)
[2023-07-15] MEDS: ACETAMINOPHEN 325 MG TABLET (FP) PO SCH ×3 (06:12→21:46)
[2023-07-15] MEDS: FUROSEMIDE 40 MG/4 ML INJECTABLE VIAL IVPUSH SCH (06:12)
[2023-07-15 07:19] LABS: HEMATOCRIT 29.7 % (32.4-45.2); HEMOGLOBIN 9.3 GM/dL (10.7-15.3); MCH 28.3 pg (25.7-33.7); MCHC 31.4 g/dl (32.0-36.0); MEAN CELL VOLUME 90.3 fl (80-96); MEAN PLT VOLUME 7.5 fl (7.5-11.1); PLATELET COUNT 293 10^3/uL (134-434); RBC 3.29 M/mm3 (3.60-5.2); RDW 18.2 % (11.6-15.6); WHITE BLOOD COUNT 11.8 K/mm3 (4.0-10.0)
[2023-07-15 07:48] LABS: POTASSIUM 4.2 mmol/L (3.5-5.1)
[2023-07-15 07:51] LABS: CALCIUM 9.4 mg/dL (8.5-10.1)
[2023-07-15 07:52] LABS: ALBUMIN 2.4 g/dl (3.4-5.0); BLOOD UREA NITROGEN 21.9 mg/dL (7-18)
[2023-07-15 07:55] LABS: PHOSPHOROUS 2.2 mg/dL (2.5-4.9)
[2023-07-15 07:56] LABS: BILIRUBIN,TOTAL 0.7 mg/dL (0.2-1); TOT PROT 5.8 g/dl (6.4-8.2)
[2023-07-15] MEDS ORDERED: FUROSEMIDE 40 MG/4 ML INJECTABLE VIAL IVPUSH SCH (10:00)
[2023-07-15] MEDS: PANTOPRAZOLE 40 MG TABLET PO SCH (10:05)
[2023-07-15] MEDS: BACITRACIN ZINC 15 GM TUBE TOPICAL OINTMENT TP SCH (10:06)
[2023-07-15] MEDS: LIDOCAINE 4% PATCH TP SCH (10:06)
[2023-07-15] MEDS: MIDODRINE HCL 2.5 MG TABLET PO SCH ×3 (10:06→17:29)
[2023-07-15] MEDS: MULTIVITAMINS (DAILY MVI) TABLET (FP) PO SCH (10:06)
[2023-07-15] MEDS: SENNOSIDES/DOCUSATE COMBO (SENNA PLUS) TABLET (UD) PO SCH ×2 (10:07→21:48)
[2023-07-15] MEDS: NAPH,MB-DB/K PH,MBDB POWDER PACKET PO SCH ×2 (10:23→21:46)
[2023-07-15] MEDS ORDERED: IRON SUCROSE INJECTION 200 MG in SODIUM CHLORIDE 90 ML IVPB ONE (11:00)
[2023-07-15] MEDS: QUEtiapine FUMARATE 25 MG TABLET PO SCH (21:48)
[2023-07-15] MEDS: LIDOCAINE PATCH REMOVAL MC SCH (21:49)
[2023-07-16] MEDS: ACETAMINOPHEN 325 MG TABLET (FP) PO SCH ×3 (06:30→21:13)
[2023-07-16 07:32] LABS: BASO % 0.2 % (0-2.0); EOS % 1.6 % (0-4.5); HEMATOCRIT 31.8 % (32.4-45.2); HEMOGLOBIN 10.1 GM/dL (10.7-15.3); LYMPH % 5.9 % (8-40); MCH 28.5 pg (25.7-33.7); MCHC 31.6 g/dl (32.0-36.0); MEAN CELL VOLUME 90.1 fl (80-96); MEAN PLT VOLUME 7.9 fl (7.5-11.1); MONO % 6.5 % (3.8-10.2); NEUT % 85.8 % (42.8-82.8); PLATELET COUNT 327 10^3/uL (134-434); RBC 3.53 M/mm3 (3.60-5.2); RDW 18.2 % (11.6-15.6); WHITE BLOOD COUNT 12.2 K/mm3 (4.0-10.0)
[2023-07-16 07:47] LABS: POTASSIUM 3.6 mmol/L (3.5-5.1)
[2023-07-16 08:01] LABS: BLOOD UREA NITROGEN 22.8 mg/dL (7-18)
[2023-07-16 08:02] LABS: MAGNESIUM 2.2 mg/dL (1.8-2.4)
[2023-07-16 08:04] LABS: CREATININE 1.2 mg/dL (0.55-1.3); PHOSPHOROUS 3.2 mg/dL (2.5-4.9)
[2023-07-16 08:12] LABS: CALCIUM 9.7 mg/dL (8.5-10.1)
[2023-07-16] MEDS: LIDOCAINE 4% PATCH TP SCH (10:32)
[2023-07-16] MEDS: PANTOPRAZOLE 40 MG TABLET PO SCH (10:34)
[2023-07-16] MEDS: MIDODRINE HCL 2.5 MG TABLET PO SCH ×3 (10:34→18:07)
[2023-07-16] MEDS: ASCORBIC ACID 250 MG TABLET (FP) PO SCH (10:35)
[2023-07-16] MEDS: ZINC SULFATE 220 MG CAPSULE (FP) PO SCH (10:35)
[2023-07-16] MEDS: FUROSEMIDE 20 MG TABLET (FP) PO SCH (10:35)
[2023-07-16] MEDS: SENNOSIDES/DOCUSATE COMBO (SENNA PLUS) TABLET (UD) PO SCH ×2 (10:35→21:12)
[2023-07-16] MEDS: MULTIVITAMINS (DAILY MVI) TABLET (FP) PO SCH (10:35)
[2023-07-16] MEDS: NAPH,MB-DB/K PH,MBDB POWDER PACKET PO SCH ×2 (10:37→21:11)
[2023-07-16] MEDS: BACITRACIN ZINC 15 GM TUBE TOPICAL OINTMENT TP SCH (11:53)
[2023-07-16] MEDS: QUEtiapine FUMARATE 25 MG TABLET PO SCH (21:11)
[2023-07-16] MEDS: LIDOCAINE PATCH REMOVAL MC SCH (21:12)
[2023-07-17] MEDS: ACETAMINOPHEN 325 MG TABLET (FP) PO SCH ×3 (06:38→23:12)
[2023-07-17] MEDS: LIDOCAINE 4% PATCH TP SCH (09:24)
[2023-07-17] MEDS: MULTIVITAMINS (DAILY MVI) TABLET (FP) PO SCH (09:25)
[2023-07-17] MEDS: SENNOSIDES/DOCUSATE COMBO (SENNA PLUS) TABLET (UD) PO SCH ×3 (09:25→23:46)
[2023-07-17] MEDS: ZINC SULFATE 220 MG CAPSULE (FP) PO SCH (09:25)
[2023-07-17] MEDS: BACITRACIN ZINC 15 GM TUBE TOPICAL OINTMENT TP SCH (09:25)
[2023-07-17] MEDS: NAPH,MB-DB/K PH,MBDB POWDER PACKET PO SCH ×2 (09:25→23:12)
[2023-07-17] MEDS: PANTOPRAZOLE 40 MG TABLET PO SCH (09:25)
[2023-07-17] MEDS: ASCORBIC ACID 250 MG TABLET (FP) PO SCH (09:25)
[2023-07-17] MEDS: FUROSEMIDE 20 MG TABLET (FP) PO SCH (09:25)
[2023-07-17 13:00] LABS: HEMATOCRIT 31.6 % (32.4-45.2); HEMOGLOBIN 9.9 GM/dL (10.7-15.3); MCH 28.4 pg (25.7-33.7); MCHC 31.3 g/dl (32.0-36.0); MEAN CELL VOLUME 90.7 fl (80-96); MEAN PLT VOLUME 7.9 fl (7.5-11.1); PLATELET COUNT 384 10^3/uL (134-434); RBC 3.48 M/mm3 (3.60-5.2); RDW 18.7 % (11.6-15.6); WHITE BLOOD COUNT 22.8 K/mm3 (4.0-10.0)
[2023-07-17 13:23] LABS: ANISOCYTOSIS 0; MACROCYTOSIS 0
[2023-07-17 13:41] LABS: POTASSIUM 3.7 mmol/L (3.5-5.1)
[2023-07-17 13:43] LABS: CALCIUM 8.5 mg/dL (8.5-10.1)
[2023-07-17 13:44] LABS: ALBUMIN 2.6 g/dl (3.4-5.0); BLOOD UREA NITROGEN 26.9 mg/dL (7-18)
[2023-07-17 13:47] LABS: CREATININE 1.4 mg/dL (0.55-1.3)
[2023-07-17 13:49] LABS: TOT PROT 6.3 g/dl (6.4-8.2)
[2023-07-17] MEDS ORDERED: COLLAGENASE CLOSTRIDIUM HIST. 30 GRAMS TUBE TP SCH (16:30)
[2023-07-17] MEDS: QUEtiapine FUMARATE 25 MG TABLET PO SCH (23:12)
[2023-07-17] MEDS: LIDOCAINE PATCH REMOVAL MC SCH (23:15)
[2023-07-18] MEDS ORDERED: SODIUM CHLORIDE 500 ML IV STA (02:03)
[2023-07-18] MEDS ORDERED: SODIUM CHLORIDE 0.9% 500 ML INFUS.BAG IV ONE (02:03)
[2023-07-18] MEDS: ACETAMINOPHEN 325 MG TABLET (FP) PO SCH (06:25)
[2023-07-18] MEDS ORDERED: MAG HYDROX/AL HYDROX/SIMETH 30 ML UNIT-DOSE CUP PO PRN (07:59)
[2023-07-18] MEDS ORDERED: ONDANSETRON 4 MG/2 ML VIAL IVPUSH PRN (07:59)
[2023-07-18 09:01] LABS: HEMATOCRIT 31.2 % (32.4-45.2); HEMOGLOBIN 9.8 GM/dL (10.7-15.3); MCH 28.5 pg (25.7-33.7); MCHC 31.2 g/dl (32.0-36.0); MEAN CELL VOLUME 91.4 fl (80-96); MEAN PLT VOLUME 7.8 fl (7.5-11.1); PLATELET COUNT 355 10^3/uL (134-434); RBC 3.42 M/mm3 (3.60-5.2); RDW 18.6 % (11.6-15.6); WHITE BLOOD COUNT 22.8 K/mm3 (4.0-10.0)
[2023-07-18] MEDS ORDERED: LORazepam 0.5 MG TABLET PO PRN (09:38)
[2023-07-18] MEDS: ASCORBIC ACID 250 MG TABLET (FP) PO SCH (09:43)
[2023-07-18] MEDS: SENNOSIDES/DOCUSATE COMBO (SENNA PLUS) TABLET (UD) PO SCH ×2 (09:43→23:27)
[2023-07-18] MEDS: MULTIVITAMINS (DAILY MVI) TABLET (FP) PO SCH (09:43)
[2023-07-18] MEDS: FUROSEMIDE 20 MG TABLET (FP) PO SCH (09:43)
[2023-07-18] MEDS: ZINC SULFATE 220 MG CAPSULE (FP) PO SCH (09:43)
[2023-07-18] MEDS: POLYETHYLENE GLYCOL (HEALTHYLAX) 3350 17 GM PACKET PO SCH ×2 (09:44→23:27)
[2023-07-18] MEDS: BACITRACIN ZINC 15 GM TUBE TOPICAL OINTMENT TP SCH (09:44)
[2023-07-18] MEDS: PANTOPRAZOLE 40 MG TABLET PO SCH (09:44)
[2023-07-18 09:46] LABS: POTASSIUM 3.3 mmol/L (3.5-5.1)
[2023-07-18] MEDS: LIDOCAINE 4% PATCH TP SCH (09:46)
[2023-07-18] MEDS ORDERED: COLLAGENASE CLOSTRIDIUM HIST. 30 GRAMS TUBE TP SCH (10:00)
[2023-07-18 10:04] LABS: ALBUMIN 2.7 g/dl (3.4-5.0); BLOOD UREA NITROGEN 28.7 mg/dL (7-18); MAGNESIUM 2.4 mg/dL (1.8-2.4)
[2023-07-18 10:07] LABS: CREATININE 1.4 mg/dL (0.55-1.3)
[2023-07-18 10:09] LABS: BILIRUBIN,TOTAL 0.9 mg/dL (0.2-1); TOT PROT 6.4 g/dl (6.4-8.2)
[2023-07-18] MEDS ORDERED: POTASSIUM CHLORIDE ORAL LIQUID 20 MEQ/15 ML PO ONE (12:30)
[2023-07-18] MEDS: NAPH,MB-DB/K PH,MBDB POWDER PACKET PO SCH ×2 (13:25→23:27)
[2023-07-18] MEDS ORDERED: ACETAMINOPHEN 325 MG TABLET (FP) PO SCH (14:00)
[2023-07-18 15:04] LABS: EPI CELLS 28 /uL (0-25.1); HYALINE CASTS 4 /uL (0-3.1); URINE APPEARANCE CLEAR; URINE BACTERIA 5 /uL (0-1359); URINE BILIRUBIN NEGATIVE (NEGATIVE); URINE COLOR YELLOW; URINE GLUCOSE (UA) NEGATIVE (NEGATIVE); URINE KETONE TRACE (NEGATIVE); URINE LEUK ESTERASE 1+ (NEGATIVE); URINE NITRITE NEGATIVE (NEGATIVE); URINE PROTEIN 1+ (NEGATIVE); URINE RBC 41 /uL (0-23.9); URINE UROBILINOGEN 0.2 mg/dL (0.2-1.0); URINE WBC 143 /uL (0-25.8)
[2023-07-18] MEDS: CEFTRIAXONE 1 GM in DEXTROSE 5%-WATER - 50 ML IVPB SCH (17:34)
[2023-07-18] MEDS: QUEtiapine FUMARATE 25 MG TABLET PO SCH (23:27)
[2023-07-18] MEDS: LIDOCAINE PATCH REMOVAL MC SCH (23:28)
[2023-07-19] MEDS ORDERED: SODIUM CHLORIDE 250 ML IV STA ×2 (03:56→08:07)
[2023-07-19 09:06] LABS: BASO % 0.4 % (0-2.0); EOS % 1.8 % (0-4.5); HEMATOCRIT 25.4 % (32.4-45.2); HEMOGLOBIN 8.1 GM/dL (10.7-15.3); LYMPH % 6.7 % (8-40); MCH 28.9 pg (25.7-33.7); MEAN CELL VOLUME 90.3 fl (80-96); MEAN PLT VOLUME 7.7 fl (7.5-11.1); MONO % 7.7 % (3.8-10.2); NEUT % 83.4 % (42.8-82.8); PLATELET COUNT 281 10^3/uL (134-434); RBC 2.82 M/mm3 (3.60-5.2); RDW 18.5 % (11.6-15.6); WHITE BLOOD COUNT 10.2 K/mm3 (4.0-10.0)
[2023-07-19 09:32] LABS: POTASSIUM 3.1 mmol/L (3.5-5.1)
[2023-07-19 09:35] LABS: BLOOD UREA NITROGEN 32.2 mg/dL (7-18); CALCIUM 8.6 mg/dL (8.5-10.1)
[2023-07-19 09:39] LABS: CREATININE 1.4 mg/dL (0.55-1.3)
[2023-07-19] MEDS: LIDOCAINE 4% PATCH TP SCH (09:55)
[2023-07-19] MEDS: PANTOPRAZOLE 40 MG TABLET PO SCH (09:57)
[2023-07-19] MEDS: NAPH,MB-DB/K PH,MBDB POWDER PACKET PO SCH ×2 (09:57→21:43)
[2023-07-19] MEDS: SENNOSIDES/DOCUSATE COMBO (SENNA PLUS) TABLET (UD) PO SCH ×2 (09:57→21:43)
[2023-07-19] MEDS: ZINC SULFATE 220 MG CAPSULE (FP) PO SCH (09:57)
[2023-07-19] MEDS: MULTIVITAMINS (DAILY MVI) TABLET (FP) PO SCH (09:57)
[2023-07-19] MEDS: FUROSEMIDE 20 MG TABLET (FP) PO SCH (09:57)
[2023-07-19] MEDS: ASCORBIC ACID 250 MG TABLET (FP) PO SCH (09:57)
[2023-07-19] MEDS: POLYETHYLENE GLYCOL (HEALTHYLAX) 3350 17 GM PACKET PO SCH ×2 (09:57→21:50)
[2023-07-19] MEDS: CEFTRIAXONE 1 GM in DEXTROSE 5%-WATER - 50 ML IVPB SCH (09:58)
[2023-07-19] MEDS: BACITRACIN ZINC 15 GM TUBE TOPICAL OINTMENT TP SCH (10:52)
[2023-07-19] MEDS ORDERED: POTASSIUM CHLORIDE ORAL LIQUID 20 MEQ/15 ML PO ONE (15:30)
[2023-07-19] MEDS: LIDOCAINE PATCH REMOVAL MC SCH (21:44)
[2023-07-19] MEDS: QUEtiapine FUMARATE 25 MG TABLET PO SCH (21:44)
[2023-07-20] MEDS ORDERED: oxyCODONE HCL 5 MG TABLET PO PRN (07:27)
[2023-07-20 09:19] LABS: BASO % 0.5 % (0-2.0); EOS % 1.7 % (0-4.5); HEMATOCRIT 25.7 % (32.4-45.2); HEMOGLOBIN 8.4 GM/dL (10.7-15.3); LYMPH % 7.2 % (8-40); MCH 29.4 pg (25.7-33.7); MCHC 32.5 g/dl (32.0-36.0); MEAN CELL VOLUME 90.5 fl (80-96); MEAN PLT VOLUME 7.5 fl (7.5-11.1); MONO % 11.4 % (3.8-10.2); NEUT % 79.2 % (42.8-82.8); PLATELET COUNT 249 10^3/uL (134-434); RBC 2.84 M/mm3 (3.60-5.2); RDW 18.9 % (11.6-15.6); WHITE BLOOD COUNT 8.8 K/mm3 (4.0-10.0)
[2023-07-20 09:38] LABS: POTASSIUM 3.6 mmol/L (3.5-5.1)
[2023-07-20 09:43] LABS: CALCIUM 8.2 mg/dL (8.5-10.1)
[2023-07-20 09:44] LABS: BLOOD UREA NITROGEN 25.2 mg/dL (7-18); MAGNESIUM 1.7 mg/dL (1.8-2.4)
[2023-07-20 09:46] LABS: CREATININE 1.3 mg/dL (0.55-1.3)
[2023-07-20] MEDS ORDERED: POTASSIUM CHLORIDE TABS 20 MEQ TABLET.ER (FP) PO SCH (10:00)
[2023-07-20] MEDS ORDERED: MAGNESIUM SULFATE IN WATER 2 GM/50 ML IVPB IVPB ONE ×2 (10:13→14:00)
[2023-07-20] MEDS: FUROSEMIDE 20 MG TABLET (FP) PO SCH (10:43)
[2023-07-20] MEDS: SENNOSIDES/DOCUSATE COMBO (SENNA PLUS) TABLET (UD) PO SCH ×2 (11:13→22:23)
[2023-07-20] MEDS: POLYETHYLENE GLYCOL (HEALTHYLAX) 3350 17 GM PACKET PO SCH ×3 (11:13→22:50)
[2023-07-20] MEDS: LIDOCAINE 4% PATCH TP SCH (11:15)
[2023-07-20] MEDS: BACITRACIN ZINC 15 GM TUBE TOPICAL OINTMENT TP SCH (11:15)
[2023-07-20] MEDS: ZINC SULFATE 220 MG CAPSULE (FP) PO SCH (11:17)
[2023-07-20] MEDS: PANTOPRAZOLE 40 MG TABLET PO SCH (11:17)
[2023-07-20] MEDS: MULTIVITAMINS (DAILY MVI) TABLET (FP) PO SCH (11:17)
[2023-07-20] MEDS: ASCORBIC ACID 250 MG TABLET (FP) PO SCH (11:17)
[2023-07-20] MEDS: CEFTRIAXONE 1 GM in DEXTROSE 5%-WATER - 50 ML IVPB SCH (11:18)
[2023-07-20] MEDS: NAPH,MB-DB/K PH,MBDB POWDER PACKET PO SCH ×2 (11:18→22:23)
[2023-07-20] MEDS ORDERED: ACETAMINOPHEN 325 MG TABLET (FP) PO PRN ×3 (12:14→12:18)
[2023-07-20] MEDS: QUEtiapine FUMARATE 25 MG TABLET PO SCH (22:23)
[2023-07-20] MEDS: LIDOCAINE PATCH REMOVAL MC SCH (22:24)
[2023-07-21 01:33] VITALS: RESP 18
[2023-07-21] MEDS ORDERED: AMINO ACIDS/PROTEIN HYDROLYS 30 ML LIQUID.PKT PO SCH (08:00)
[2023-07-21 10:34] LABS: CALCIUM 8.3 mg/dL (8.5-10.1)
[2023-07-21 10:35] LABS: BLOOD UREA NITROGEN 21.2 mg/dL (7-18); MAGNESIUM 2.8 mg/dL (1.8-2.4)
[2023-07-21 10:38] LABS: CREATININE 1.2 mg/dL (0.55-1.3)
[2023-07-21] MEDS ORDERED: SENNOSIDES/DOCUSATE COMBO (SENNA PLUS) TABLET (UD) PO PRN (11:45)
[2023-07-21] MEDS: POLYETHYLENE GLYCOL (HEALTHYLAX) 3350 17 GM PACKET PO SCH (11:45)
[2023-07-21] MEDS: SENNOSIDES/DOCUSATE COMBO (SENNA PLUS) TABLET (UD) PO SCH (11:45)
[2023-07-21] MEDS: LIDOCAINE 4% PATCH TP SCH (11:57)
[2023-07-21] MEDS: FUROSEMIDE 20 MG TABLET (FP) PO SCH (11:58)
[2023-07-21] MEDS: ZINC SULFATE 220 MG CAPSULE (FP) PO SCH (11:58)
[2023-07-21] MEDS: MULTIVITAMINS (DAILY MVI) TABLET (FP) PO SCH (11:58)
[2023-07-21] MEDS: ASCORBIC ACID 250 MG TABLET (FP) PO SCH (11:58)
[2023-07-21] MEDS: NAPH,MB-DB/K PH,MBDB POWDER PACKET PO SCH (11:59)
[2023-07-21] MEDS: PANTOPRAZOLE 40 MG TABLET PO SCH (11:59)
[2023-07-21] MEDS: BACITRACIN ZINC 15 GM TUBE TOPICAL OINTMENT TP SCH (12:59)
[2023-07-21 13:17] VITALS: TEMP 98.6
[2023-07-21 14:49] VITALS: BP 100/57; PULSE 91
[2023-07-22] MEDS ORDERED: POLYETHYLENE GLYCOL (HEALTHYLAX) 3350 17 GM PACKET PO SCH (10:00)
== END 2023-07-21 02:40 | DRG 521 ==
LOC: JER 10:17 → JERBED 19:29 → J4S 23:32 → OBSVTOIN 07-04 15:18 → J7W 07-08 20:14 → J4S 07-10 14:00 → J4W 07-13 23:14 → J7W 07-17 19:39
PROVIDERS: ADMIT Internal Medicine; ATTEND Nurse Practitioner
PROC: 30233N1 Transfusion of Nonautologous Red Blood Cells into Peripheral Vein, Percutaneous Approach (ICD-10-PCS; 2023-07-03)
PROC: 0SRR0J9 Replacement of Right Hip Joint, Femoral Surface with Synthetic Substitute, Cemented, Open Approach (ICD-10-PCS; principal; 2023-07-04 11:00)
PROC: 05HB33Z Insertion of Infusion Device into Right Basilic Vein, Percutaneous Approach (ICD-10-PCS; 2023-07-12)
PROC: B54MZZA Ultrasonography of Right Upper Extremity Veins, Guidance (ICD-10-PCS; 2023-07-12)
PROC: 06H03DZ Insertion of Intraluminal Device into Inferior Vena Cava, Percutaneous Approach (ICD-10-PCS; 2023-07-14)
DX: S72.051A Unspecified fracture of head of right femur, initial encounter for closed fracture (principal); G93.41 Metabolic encephalopathy; I82.433 Acute embolism and thrombosis of popliteal vein, bilateral; J95.821 Acute postprocedural respiratory failure; J81.0 Acute pulmonary edema; D62 Acute posthemorrhagic anemia; E27.40 Unspecified adrenocortical insufficiency; D68.69 Other thrombophilia; I50.32 Chronic diastolic (congestive) heart failure; T81.72XA Complication of vein following a procedure, not elsewhere classified, initial encounter; E86.1 Hypovolemia; I10 Essential (primary) hypertension; E78.5 Hyperlipidemia, unspecified; E87.6 Hypokalemia; E83.42 Hypomagnesemia; D72.829 Elevated white blood cell count, unspecified; I95.81 Postprocedural hypotension; E04.2 Nontoxic multinodular goiter; I35.0 Nonrheumatic aortic (valve) stenosis; I87.2 Venous insufficiency (chronic) (peripheral); R33.9 Retention of urine, unspecified; W07.XXXA Fall from chair, initial encounter; Y92.098 Other place in other non-institutional residence as the place of occurrence of the external cause; Y99.9 Unspecified external cause status
CPT/HCPCS: 0241U-QW; 36415; 36430; 36600; 37191; 70450-TC; 71045-TC-FY; 71046-TC-FY; 71275-TC; 72125-TC; 72170-TC-FY; 73502-TC-RT-FY; 73552-TC-RT-FY; 73700-TC-RT; 73706-TC-RT; 74177-TC; 80048; 80053; 81003; 82024; 82272; 82533; 82550; 82607; 82728; 82746; 82803; 82962; 83540; 83550; 83605; 83735; 83880; 84100; 84484; 85025; 85027; 85045; 85610; 85730; 86850; 86900; 86901; 86922; 87040; 87077; 87086; 87635; 93005; 93010; 93306-TC; 93970-TC; 94660; 94760; 97116-GP; 97161-GP; 99285-25; C1776; C1889; G0378; J1644; J1756; P9038; P9058; Q9967

== ENCOUNTER 2023-08-26 14:47 | Inpatient (IN) | payer OTHER, MEDICARE ==
[2023-08-26 16:26] LABS: VENOUS BASE EXCESS -2.5 mmol/L (-2-2); VENOUS O2 SATURATION 35.9 % (70-80); VENOUS PCO2 40.9 mmHg (38-52); VENOUS PH 7.363 (7.310-7.410)
[2023-08-26] MEDS ORDERED: ACETAMINOPHEN INJECTION 100 ML IVPB ONE (16:34)
[2023-08-26 16:35] LABS: INR 1.1 (0.83-1.09); PROTHROMBIN TIME (PATIENT) 12.8 SEC (9.7-13.0)
[2023-08-26 16:37] LABS: ACTIVATED PTT 32.3 SECONDS (25.2-36.5)
[2023-08-26] MEDS: ACETAMINOPHEN 1000 MG/100 ML BAG IVPB ONE (16:40)
[2023-08-26] MEDS: LACTATED RINGERS SOLUTION 1000 ML INFUS.BAG IV ONE (16:40)
[2023-08-26 16:43] LABS: BASO % 0.8 % (0-2.0); EOS % 1.3 % (0-4.5); HEMATOCRIT 28.9 % (32.4-45.2); HEMOGLOBIN 9.4 GM/dL (10.7-15.3); LYMPH % 13.1 % (8-40); MCH 30.4 pg (25.7-33.7); MCHC 32.6 g/dl (32.0-36.0); MEAN CELL VOLUME 93.2 fl (80-96); MEAN PLT VOLUME 7.9 fl (7.5-11.1); MONO % 10.8 % (3.8-10.2); PLATELET COUNT 259 10^3/uL (134-434); RDW 18.1 % (11.6-15.6); WHITE BLOOD COUNT 5.4 K/mm3 (4.0-10.0)
[2023-08-26 16:52] LABS: MAGNESIUM 2.2 mg/dL (1.8-2.4)
[2023-08-26 17:02] LABS: POTASSIUM 4.3 mmol/L (3.5-5.1)
[2023-08-26 17:04] LABS: ALBUMIN 2.8 g/dl (3.4-5.0); CALCIUM 11.1 mg/dL (8.5-10.1)
[2023-08-26 17:05] LABS: BLOOD UREA NITROGEN 18.4 mg/dL (7-18)
[2023-08-26 17:08] LABS: CREATININE 0.8 mg/dL (0.55-1.3)
[2023-08-26 17:09] LABS: BILIRUBIN,TOTAL 0.5 mg/dL (0.2-1); TOT PROT 6.8 g/dl (6.4-8.2)
[2023-08-26] MEDS ORDERED: PIPERACILLIN/TAZOB 3.375 GM 3.375 GM/50 ML BAG IVPB ONE (17:29)
[2023-08-26] MEDS: PIPERACILLIN/TAZOB 3.375 GM 3.375 GM in DEXTROSE 5%-WATER - 50 ML IVPB ONE (17:30)
[2023-08-26 17:37] LABS: EPI CELLS 0 /uL (0-25.1); HYALINE CASTS 1 /uL (0-3.1); PH,URINE 5.5 (5.0-8.0); URINE APPEARANCE CLOUDY; URINE BACTERIA >9,000 /uL (0-1359); URINE BILIRUBIN NEGATIVE (NEGATIVE); URINE COLOR YELLOW; URINE GLUCOSE (UA) NEGATIVE (NEGATIVE); URINE KETONE TRACE (NEGATIVE); URINE LEUK ESTERASE 1+ (NEGATIVE); URINE NITRITE POSITIVE (NEGATIVE); URINE PROTEIN TRACE (NEGATIVE); URINE RBC 15 /uL (0-23.9); URINE UROBILINOGEN 0.2 mg/dL (0.2-1.0); URINE WBC 267 /uL (0-25.8)
[2023-08-26] MEDS: DEXTROSE 50%-WATER - 25 GM/50 ML VIAL IVPUSH ONE (19:04)
[2023-08-26] MEDS ORDERED: VANCOMYCIN 1 GRAM (PRE-DOCKED) 1,000 MG/250 ML BAG IVPB ONE (19:12)
[2023-08-26] MEDS: VANCOMYCIN 1,000 MG in DEXTROSE 5%-WATER - 250 ML IVPB ONE (19:24)
[2023-08-26] MEDS ORDERED: KETOROLAC TROMETHAMINE 15 MG/ML VIAL ONE (19:43)
[2023-08-26] MEDS: KETOROLAC TROMETHAMINE 15 MG/ML VIAL IVPUSH ONE (19:45)
[2023-08-26] MEDS: morphine CARPU-JECT 2 MG/1 ML DISP.SYRIN IVPUSH ONE (20:22)
[2023-08-26] MEDS ORDERED: SENNOSIDES/DOCUSATE COMBO (SENNA PLUS) TABLET (UD) PO PRN (21:47)
[2023-08-26] MEDS ORDERED: ACETAMINOPHEN 1000 MG/100 ML BAG IVPB PRN (22:25)
[2023-08-27 00:28] VITALS: BMI 21.4
[2023-08-27] MEDS: APIXABAN 5 MG TABLET PO SCH (00:53)
[2023-08-27] MEDS: AMPICILLIN NA/SULBACTAM NA 1.5 GM in SODIUM CHLORIDE 100 ML IVPB SCH (01:22)
[2023-08-27] MEDS: MINERAL OIL ENEMA 133 ML ENEMA RC SCH (02:01)
[2023-08-27] MEDS: POLYETHYLENE GLYCOL (HEALTHYLAX) 3350 17 GM PACKET PO SCH (02:05)
[2023-08-27] MEDS: ENOXAPARIN NA (PORCINE) 60 MG/0.6 ML DISP.SYRIN SQ ONE (06:08)
[2023-08-27 08:57] LABS: BASO % 0.7 % (0-2.0); EOS % 5.9 % (0-4.5); LYMPH % 14.2 % (8-40); MCH 30.8 pg (25.7-33.7); MCHC 33.3 g/dl (32.0-36.0); MEAN CELL VOLUME 92.3 fl (80-96); MEAN PLT VOLUME 7.7 fl (7.5-11.1); MONO % 10.7 % (3.8-10.2); NEUT % 68.5 % (42.8-82.8); PLATELET COUNT 245 10^3/uL (134-434); RDW 18.1 % (11.6-15.6); WHITE BLOOD COUNT 4.2 K/mm3 (4.0-10.0)
[2023-08-27 08:59] LABS: POTASSIUM 3.8 mmol/L (3.5-5.1)
[2023-08-27 09:03] LABS: CALCIUM 10.4 mg/dL (8.5-10.1)
[2023-08-27 09:04] LABS: ALBUMIN 2.4 g/dl (3.4-5.0); MAGNESIUM 1.8 mg/dL (1.8-2.4)
[2023-08-27 09:07] LABS: CREATININE 0.9 mg/dL (0.55-1.3); PHOSPHOROUS 2.9 mg/dL (2.5-4.9)
[2023-08-27 09:08] LABS: BILIRUBIN,TOTAL 0.4 mg/dL (0.2-1); TOT PROT 5.7 g/dl (6.4-8.2)
[2023-08-27] MEDS: ENOXAPARIN NA (PORCINE) 60 MG/0.6 ML DISP.SYRIN SQ SCH (09:28)
[2023-08-27] MEDS: PANTOPRAZOLE 40 MG TABLET PO SCH (09:28)
[2023-08-27] MEDS ORDERED: FUROSEMIDE 20 MG TABLET (FP) PO SCH (10:00)
[2023-08-27] MEDS: ACETAMINOPHEN 325 MG TABLET (FP) PO PRN (11:02)
[2023-08-27] MEDS: ATORVASTATIN CA 20 MG TABLET (FP) PO SCH (21:13)
[2023-08-27] MEDS: QUEtiapine FUMARATE 25 MG TABLET PO SCH (21:13)
[2023-08-27] MEDS: SENNOSIDES/DOCUSATE COMBO (SENNA PLUS) TABLET (UD) PO SCH (21:13)
[2023-08-27] MEDS ORDERED: ENOXAPARIN NA (PORCINE) 60 MG/0.6 ML DISP.SYRIN SQ SCH (22:00)
[2023-08-28 09:23] LABS: HEMATOCRIT 25.5 % (32.4-45.2); HEMOGLOBIN 8.5 GM/dL (10.7-15.3); MCH 30.7 pg (25.7-33.7); MCHC 33.2 g/dl (32.0-36.0); MEAN CELL VOLUME 92.4 fl (80-96); MEAN PLT VOLUME 7.6 fl (7.5-11.1); PLATELET COUNT 226 10^3/uL (134-434); RBC 2.76 M/mm3 (3.60-5.2); RDW 17.9 % (11.6-15.6)
[2023-08-28 09:41] LABS: POTASSIUM 3.6 mmol/L (3.5-5.1)
[2023-08-28 09:43] LABS: CALCIUM 9.9 mg/dL (8.5-10.1)
[2023-08-28 09:47] LABS: CREATININE 0.9 mg/dL (0.55-1.3); PHOSPHOROUS 3.2 mg/dL (2.5-4.9)
[2023-08-28] MEDS ORDERED: ENOXAPARIN NA (PORCINE) 40 MG/0.4 ML DISP.SYRIN SQ SCH (10:00)
[2023-08-28] MEDS: ENOXAPARIN NA (PORCINE) 60 MG/0.6 ML DISP.SYRIN SQ SCH (10:05)
[2023-08-29] MEDS ORDERED: ERTAPENEM SODIUM 0.5 GM in SODIUM CHLORIDE 50 ML IVPB SCH (10:00)
[2023-08-29] MEDS: AMPICILLIN NA/SULBACTAM NA 1.5 GM in SODIUM CHLORIDE 100 ML IVPB SCH (10:04)
[2023-08-29 10:54] LABS: BASO % 0.8 % (0-2.0); EOS % 7.5 % (0-4.5); HEMATOCRIT 26.7 % (32.4-45.2); HEMOGLOBIN 8.7 GM/dL (10.7-15.3); LYMPH % 16.9 % (8-40); MCH 30.5 pg (25.7-33.7); MCHC 32.5 g/dl (32.0-36.0); MEAN CELL VOLUME 93.9 fl (80-96); MEAN PLT VOLUME 7.6 fl (7.5-11.1); MONO % 13.6 % (3.8-10.2); NEUT % 61.2 % (42.8-82.8); PLATELET COUNT 232 10^3/uL (134-434); RBC 2.84 M/mm3 (3.60-5.2); WHITE BLOOD COUNT 3.3 K/mm3 (4.0-10.0)
[2023-08-29 11:35] LABS: CHLORIDE 111 mmol/L (98-107); POTASSIUM 3.7 mmol/L (3.5-5.1); SODIUM 143 mmol/L (136-145)
[2023-08-29 11:53] LABS: BLOOD UREA NITROGEN 11.7 mg/dL (7-18)
[2023-08-29 11:54] LABS: CALCIUM 10.1 mg/dL (8.5-10.1); GLUCOSE,RANDOM 87 mg/dL (74-106)
[2023-08-29 11:55] LABS: ALBUMIN 2.2 g/dl (3.4-5.0); ANION GAP 8 mmol/L (4-13); CO2 25 mmol/L (21-32)
[2023-08-29 11:57] LABS: SGOT/AST 10 U/L (15-37)
[2023-08-29 11:59] LABS: BILIRUBIN,TOTAL 0.2 mg/dL (0.2-1); TOT PROT 5.5 g/dl (6.4-8.2)
[2023-08-29 12:00] LABS: ALK PHOS 83 U/L (45-117)
[2023-08-29 12:04] LABS: SGPT/ALT < 6 U/L (13-61)
[2023-08-29] MEDS: TAMSULOSIN HCL 0.4 MG CAP PO ONE (17:05)
[2023-08-29] MEDS: TAMSULOSIN HCL 0.4 MG CAP PO SCH (21:54)
[2023-08-30] MEDS ORDERED: TAMSULOSIN HCL 0.4 MG CAP PO SCH (08:30)
[2023-08-30 09:12] LABS: HEMATOCRIT 25.7 % (32.4-45.2); HEMOGLOBIN 8.4 GM/dL (10.7-15.3); MCHC 32.8 g/dl (32.0-36.0); MEAN CELL VOLUME 91.6 fl (80-96); MEAN PLT VOLUME 7.5 fl (7.5-11.1); PLATELET COUNT 232 10^3/uL (134-434); RBC 2.81 M/mm3 (3.60-5.2); WHITE BLOOD COUNT 3.3 K/mm3 (4.0-10.0)
[2023-08-30] MEDS: IRON SUCROSE INJECTION 200 MG in SODIUM CHLORIDE 90 ML IVPB ONE (09:23)
[2023-08-30 09:27] LABS: POTASSIUM 3.3 mmol/L (3.5-5.1)
[2023-08-30 09:33] LABS: BLOOD UREA NITROGEN 9.2 mg/dL (7-18); CALCIUM 9.4 mg/dL (8.5-10.1); MAGNESIUM 1.8 mg/dL (1.8-2.4)
[2023-08-30 09:36] LABS: PHOSPHOROUS 2.8 mg/dL (2.5-4.9)
[2023-08-30 09:37] LABS: CREATININE 0.8 mg/dL (0.55-1.3)
[2023-08-30] MEDS: KCL 10 MEQ IVPB 10 MEQ/100 ML INFUS.BAG IVPB SCH (13:36)
[2023-08-30] MEDS: oxyCODONE HCL 5 MG TABLET PO PRN (23:17)
[2023-08-30] MEDS: ACETAMINOPHEN 325 MG TABLET (FP) PO PRN (23:19)
[2023-08-31 07:56] LABS: BASO % 0.9 % (0-2.0); EOS % 11.2 % (0-4.5); HEMOGLOBIN 8.2 GM/dL (10.7-15.3); LYMPH % 25.4 % (8-40); MCH 30.5 pg (25.7-33.7); MEAN CELL VOLUME 92.5 fl (80-96); MEAN PLT VOLUME 7.6 fl (7.5-11.1); MONO % 12.7 % (3.8-10.2); NEUT % 49.8 % (42.8-82.8); PLATELET COUNT 209 10^3/uL (134-434); RDW 17.9 % (11.6-15.6); WHITE BLOOD COUNT 3.2 K/mm3 (4.0-10.0)
[2023-08-31 08:13] LABS: POTASSIUM 3.6 mmol/L (3.5-5.1)
[2023-08-31 08:15] LABS: CALCIUM 9.2 mg/dL (8.5-10.1)
[2023-08-31 08:17] LABS: ALBUMIN 2.2 g/dl (3.4-5.0)
[2023-08-31 08:18] LABS: BLOOD UREA NITROGEN 9.8 mg/dL (7-18)
[2023-08-31 08:19] LABS: CREATININE 0.8 mg/dL (0.55-1.3)
[2023-08-31 08:20] LABS: TOT PROT 5.2 g/dl (6.4-8.2)
[2023-08-31 08:21] LABS: BILIRUBIN,TOTAL 0.3 mg/dL (0.2-1)
[2023-08-31 21:42] VITALS: BP 143/73; PULSE 102; RESP 18; TEMP 98.7
== END 2023-08-31 20:45 | disposition short-term general hospital (02) | DRG 300 ==
LOC: JER 14:47 → JERBED 18:00 → J6S 23:54
PROVIDERS: ADMIT Internal Medicine; ATTEND Internal Medicine
DX: I82.432 Acute embolism and thrombosis of left popliteal vein (principal); I50.32 Chronic diastolic (congestive) heart failure; N39.0 Urinary tract infection, site not specified; I82.511 Chronic embolism and thrombosis of right femoral vein; K59.00 Constipation, unspecified; E83.52 Hypercalcemia; R33.9 Retention of urine, unspecified; I35.0 Nonrheumatic aortic (valve) stenosis; D64.9 Anemia, unspecified; E86.0 Dehydration; E78.5 Hyperlipidemia, unspecified
CPT/HCPCS: 0241U-QW; 36415; 71045-TC-FY; 74177-TC; 80048; 80053; 81003; 82272; 82306; 82550; 82728; 82803; 83540; 83550; 83605; 83690; 83735; 83970; 84100; 84443; 84466; 84484; 85025; 85027; 85045; 85610; 85730; 86850; 86900; 86901; 87040; 87086; 87186; 93005; 93010; 93970-TC; 97116-GP; 97162-GP; 99285-25; J0131; J1756

== ENCOUNTER 2023-10-07 10:06 | Inpatient (IN) | payer OTHER, MEDICARE ==
[2023-10-07] MEDS ORDERED: FENTANYL CITRATE/PF 50 MCG/ML VIAL ONE (12:17)
[2023-10-07] MEDS ORDERED: ACETAMINOPHEN INJECTION 100 ML IVPB ONE (12:18)
[2023-10-07 12:23] LABS: BASO % 0.5 % (0-2.0); EOS % 0.6 % (0-4.5); HEMATOCRIT 15.4 % (32.4-45.2); LYMPH % 18.7 % (8-40); MCHC 32.8 g/dl (32.0-36.0); MEAN CELL VOLUME 94.3 fl (80-96); MEAN PLT VOLUME 7.6 fl (7.5-11.1); MONO % 12.1 % (3.8-10.2); NEUT % 68.1 % (42.8-82.8); PLATELET COUNT 261 10^3/uL (134-434); RBC 1.64 M/mm3 (3.60-5.2); RDW 15.9 % (11.6-15.6); WHITE BLOOD COUNT 4.6 K/mm3 (4.0-10.0)
[2023-10-07 12:26] LABS: HEMOGLOBIN 5.1 GM/dL (10.7-15.3)
[2023-10-07 12:30] LABS: INR 3.51 (0.83-1.09); PROTHROMBIN TIME (PATIENT) 40.2 SEC (9.7-13.0)
[2023-10-07 12:32] LABS: ACTIVATED PTT 41.6 SECONDS (25.2-36.5)
[2023-10-07] MEDS: ACETAMINOPHEN 1000 MG/100 ML BAG IVPB ONE (12:35)
[2023-10-07] MEDS: SODIUM CHLORIDE 0.9% 500 ML INFUS.BAG IV ONE (12:36)
[2023-10-07 12:38] LABS: POTASSIUM 4.4 mmol/L (3.5-5.1)
[2023-10-07 12:40] LABS: ALBUMIN 2.7 g/dl (3.4-5.0); BLOOD UREA NITROGEN 38.6 mg/dL (7-18); CALCIUM 8.9 mg/dL (8.5-10.1)
[2023-10-07 12:43] LABS: CREATININE 1.1 mg/dL (0.55-1.3)
[2023-10-07 12:45] LABS: BILIRUBIN,TOTAL 0.3 mg/dL (0.2-1); TOT PROT 5.9 g/dl (6.4-8.2)
[2023-10-07] MEDS ORDERED: PANTOPRAZOLE SODIUM 80 MG/200 ML BAG IVPB ONE (12:52)
[2023-10-07] MEDS: PANTOPRAZOLE SODIUM 40 MG VIAL IVPUSH ONE (13:17)
[2023-10-07] MEDS ORDERED: ACETAMINOPHEN 325 MG TABLET (FP) PO PRN (15:09)
[2023-10-07] MEDS ORDERED: LIDOCAINE 5% TOPICAL PATCH TP SCH (15:30)
[2023-10-07] MEDS ORDERED: LIDOCAINE 4% PATCH TP ONE (15:54)
[2023-10-07] MEDS: LIDOCAINE 4% PATCH TP SCH (16:14)
[2023-10-07] MEDS: SODIUM CHLORIDE 1,000 ML IV SCH (16:30)
[2023-10-07] MEDS: PANTOPRAZOLE SODIUM 80 MG in SODIUM CHLORIDE 100 ML IVPB SCH (17:39)
[2023-10-07] MEDS: ACETAMINOPHEN 1000 MG/100 ML BAG IVPB PRN (17:39)
[2023-10-07] MEDS: PHYTONADIONE 10 MG/1 ML AMP IVPB ONE (17:39)
[2023-10-07 19:06] LABS: BASO % 0.4 % (0-2.0); EOS % 1.4 % (0-4.5); HEMATOCRIT 18.1 % (32.4-45.2); LYMPH % 14.7 % (8-40); MCH 30.3 pg (25.7-33.7); MCHC 33.2 g/dl (32.0-36.0); MEAN CELL VOLUME 91.2 fl (80-96); MEAN PLT VOLUME 7.2 fl (7.5-11.1); NEUT % 70.5 % (42.8-82.8); PLATELET COUNT 234 10^3/uL (134-434); RBC 1.99 M/mm3 (3.60-5.2); RDW 16.8 % (11.6-15.6); WHITE BLOOD COUNT 4.2 K/mm3 (4.0-10.0)
[2023-10-07] MEDS: HUM PROTHROMBIN CPLX(PCC)4FACT 1,000 UNIT/40 ML VIAL IV ONE (20:07)
[2023-10-07] MEDS: CHLORHEXIDINE GLUCONATE 4% CLEANSER FOR DECOLONIZATION TP SCH (21:02)
[2023-10-07] MEDS: LIDOCAINE PATCH REMOVAL MC SCH (21:02)
[2023-10-07] MEDS: MUPIROCIN 2% TOPICAL OINTMENT FOR DECOLONIZATION NS SCH (21:02)
[2023-10-07] MEDS: PROTHROMBIN COMPLEX CONCENTRATE IVPB ONE (21:33)
[2023-10-07] MEDS: morphine SULFATE 4 MG/ML VIAL IVPUSH ONE (22:40)
[2023-10-08 00:50] LABS: MCH 30.2 pg (25.7-33.7); MCHC 31.7 g/dl (32.0-36.0); MEAN CELL VOLUME 95.1 fl (80-96); MEAN PLT VOLUME 7.8 fl (7.5-11.1); PLATELET COUNT 244 10^3/uL (134-434); RBC 2.21 M/mm3 (3.60-5.2); RDW 20.3 % (11.6-15.6); WHITE BLOOD COUNT 3.7 K/mm3 (4.0-10.0)
[2023-10-08 01:05] LABS: HEMOGLOBIN 6.7 GM/dL (10.7-15.3)
[2023-10-08 02:08] LABS: PH,URINE 5.5 (5.0-8.0); URINE APPEARANCE CLEAR; URINE BILIRUBIN NEGATIVE (NEGATIVE); URINE COLOR YELLOW; URINE GLUCOSE (UA) NEGATIVE (NEGATIVE); URINE KETONE NEGATIVE (NEGATIVE); URINE LEUK ESTERASE NEGATIVE (NEGATIVE); URINE NITRITE NEGATIVE (NEGATIVE); URINE PROTEIN NEGATIVE (NEGATIVE); URINE UROBILINOGEN 0.2 mg/dL (0.2-1.0)
[2023-10-08] MEDS ORDERED: ALBUTEROL SO4 2.5/IPRATROPIUM 0.5 INH SOL 3 ML VIAL.NEB. NEB ONE (06:57)
[2023-10-08] MEDS: FUROSEMIDE 40 MG/4 ML INJECTABLE VIAL IVPUSH ONE (07:02)
[2023-10-08] MEDS: ALBUTEROL SO4 2.5/IPRATROPIUM 0.5 INH SOL 3 ML VIAL.NEB. NEB ONE (07:02)
[2023-10-08 08:36] LABS: BASO % 0.3 % (0-2.0); EOS % 1.4 % (0-4.5); HEMATOCRIT 26.2 % (32.4-45.2); HEMOGLOBIN 8.8 GM/dL (10.7-15.3); LYMPH % 6.7 % (8-40); MCH 30.4 pg (25.7-33.7); MCHC 33.8 g/dl (32.0-36.0); MEAN PLT VOLUME 7.7 fl (7.5-11.1); MONO % 8.4 % (3.8-10.2); NEUT % 83.2 % (42.8-82.8); PLATELET COUNT 257 10^3/uL (134-434); RBC 2.91 M/mm3 (3.60-5.2); RDW 16.5 % (11.6-15.6); WHITE BLOOD COUNT 8.5 K/mm3 (4.0-10.0)
[2023-10-08 08:44] LABS: MEAN CELL VOLUME 89.9 fl (80-96)
[2023-10-08 08:45] LABS: INR 1.24 (0.83-1.09); PROTHROMBIN TIME (PATIENT) 14.4 SEC (9.7-13.0)
[2023-10-08 08:47] LABS: ACTIVATED PTT 28.9 SECONDS (25.2-36.5)
[2023-10-08 09:43] LABS: POTASSIUM 3.7 mmol/L (3.5-5.1)
[2023-10-08 09:46] LABS: CALCIUM 8.6 mg/dL (8.5-10.1)
[2023-10-08 09:47] LABS: ALBUMIN 2.4 g/dl (3.4-5.0); BLOOD UREA NITROGEN 31.8 mg/dL (7-18); MAGNESIUM 2.1 mg/dL (1.8-2.4)
[2023-10-08 09:50] LABS: PHOSPHOROUS 3.3 mg/dL (2.5-4.9)
[2023-10-08 09:51] LABS: BILIRUBIN,TOTAL 0.8 mg/dL (0.2-1); TOT PROT 5.4 g/dl (6.4-8.2)
[2023-10-08] MEDS: FUROSEMIDE INJECTION 100 MG in SODIUM CHLORIDE 90 ML IVPB SCH (11:53)
[2023-10-08] MEDS: KCL 10 MEQ IVPB 10 MEQ/100 ML INFUS.BAG IVPB SCH (12:27)
[2023-10-08 17:45] LABS: BASO % 0.7 % (0-2.0); EOS % 1.3 % (0-4.5); HEMATOCRIT 25.4 % (32.4-45.2); HEMOGLOBIN 8.7 GM/dL (10.7-15.3); LYMPH % 13.9 % (8-40); MCH 30.4 pg (25.7-33.7); MCHC 34.3 g/dl (32.0-36.0); MEAN CELL VOLUME 88.7 fl (80-96); MEAN PLT VOLUME 7.2 fl (7.5-11.1); MONO % 13.4 % (3.8-10.2); NEUT % 70.7 % (42.8-82.8); PLATELET COUNT 253 10^3/uL (134-434); RBC 2.86 M/mm3 (3.60-5.2); RDW 16.7 % (11.6-15.6); WHITE BLOOD COUNT 4.7 K/mm3 (4.0-10.0)
[2023-10-08] MEDS: ACETAMINOPHEN 1000 MG/100 ML BAG IVPB STA (20:00)
[2023-10-08] MEDS: MAGNESIUM HYDROX 2400MG/30ML ORAL SUSPENSION 30 ML CUP PO PRN (20:00)
[2023-10-08] MEDS: HEPARIN NA (PORCINE) 5,000 UNITS/ML 1ML VIAL SQ SCH (21:14)
[2023-10-08] MEDS ORDERED: DOCUSATE SODIUM 100 MG CAPSULE (FP) PO SCH (22:00)
[2023-10-08] MEDS ORDERED: SENNOSIDES 8.6MG TABLET (FP) PO SCH (22:00)
[2023-10-09] MEDS ORDERED: ACETAMINOPHEN INJECTION 100 ML IVPB ONE (06:12)
[2023-10-09] MEDS: ACETAMINOPHEN 1000 MG/100 ML BAG IVPB ONE ×2 (06:42→14:17)
[2023-10-09 07:59] LABS: BASO % 0.5 % (0-2.0); EOS % 3.8 % (0-4.5); HEMOGLOBIN 7.8 GM/dL (10.7-15.3); LYMPH % 18.4 % (8-40); MCH 30.2 pg (25.7-33.7); MCHC 33.8 g/dl (32.0-36.0); MEAN CELL VOLUME 89.4 fl (80-96); MEAN PLT VOLUME 7.7 fl (7.5-11.1); MONO % 14.5 % (3.8-10.2); NEUT % 62.8 % (42.8-82.8); PLATELET COUNT 262 10^3/uL (134-434); RBC 2.57 M/mm3 (3.60-5.2); RDW 16.8 % (11.6-15.6); WHITE BLOOD COUNT 3.8 K/mm3 (4.0-10.0)
[2023-10-09 08:16] LABS: POTASSIUM 3.4 mmol/L (3.5-5.1)
[2023-10-09 08:21] LABS: BLOOD UREA NITROGEN 28.8 mg/dL (7-18); CALCIUM 8.7 mg/dL (8.5-10.1)
[2023-10-09 08:22] LABS: MAGNESIUM 2.2 mg/dL (1.8-2.4)
[2023-10-09 08:24] LABS: PHOSPHOROUS 3.7 mg/dL (2.5-4.9)
[2023-10-09] MEDS: POTASSIUM CHLORIDE TABS 20 MEQ TABLET.ER (FP) PO ONE (10:22)
[2023-10-09] MEDS: MAGNESIUM HYDROX 2400MG/30ML ORAL SUSPENSION 30 ML CUP PO SCH ×2 (12:08→21:45)
[2023-10-09] MEDS: FUROSEMIDE 40 MG/4 ML INJECTABLE VIAL IVPUSH ONE (14:17)
[2023-10-09 16:07] VITALS: BMI 25.5
[2023-10-09 19:07] LABS: BASO % 0.8 % (0-2.0); EOS % 2.1 % (0-4.5); HEMATOCRIT 27.8 % (32.4-45.2); HEMOGLOBIN 9.2 GM/dL (10.7-15.3); LYMPH % 15.7 % (8-40); MCH 30.3 pg (25.7-33.7); MCHC 33.2 g/dl (32.0-36.0); MEAN CELL VOLUME 91.3 fl (80-96); MEAN PLT VOLUME 7.5 fl (7.5-11.1); MONO % 13.8 % (3.8-10.2); NEUT % 67.6 % (42.8-82.8); PLATELET COUNT 282 10^3/uL (134-434); RBC 3.04 M/mm3 (3.60-5.2); WHITE BLOOD COUNT 4.6 K/mm3 (4.0-10.0)
[2023-10-09] MEDS: AMINO ACIDS 4.25%/D5W 1,000 ML IV SCH (20:49)
[2023-10-09] MEDS: PANTOPRAZOLE SODIUM 80 MG in SODIUM CHLORIDE 100 ML IVPB SCH (21:12)
[2023-10-09] MEDS: LIDOCAINE PATCH REMOVAL MC SCH ×2 (21:45)
[2023-10-09] MEDS: ACETAMINOPHEN 1000 MG/100 ML BAG IVPB PRN (22:48)
[2023-10-10 07:31] LABS: BASO % 0.6 % (0-2.0); EOS % 3.2 % (0-4.5); HEMATOCRIT 24.7 % (32.4-45.2); HEMOGLOBIN 8.2 GM/dL (10.7-15.3); LYMPH % 12.4 % (8-40); MCH 30.4 pg (25.7-33.7); MCHC 33.2 g/dl (32.0-36.0); MEAN CELL VOLUME 91.4 fl (80-96); MEAN PLT VOLUME 7.5 fl (7.5-11.1); MONO % 12.7 % (3.8-10.2); NEUT % 71.1 % (42.8-82.8); PLATELET COUNT 257 10^3/uL (134-434); RDW 16.8 % (11.6-15.6)
[2023-10-10 07:47] LABS: POTASSIUM 3.7 mmol/L (3.5-5.1)
[2023-10-10 07:49] LABS: ALBUMIN 2.5 g/dl (3.4-5.0); BLOOD UREA NITROGEN 26.8 mg/dL (7-18); CALCIUM 8.8 mg/dL (8.5-10.1); MAGNESIUM 2.3 mg/dL (1.8-2.4)
[2023-10-10 07:52] LABS: PHOSPHOROUS 3.2 mg/dL (2.5-4.9)
[2023-10-10 07:54] LABS: BILIRUBIN,TOTAL 0.4 mg/dL (0.2-1); CREATININE 1.1 mg/dL (0.55-1.3); TOT PROT 5.5 g/dl (6.4-8.2)
[2023-10-10] MEDS: LIDOCAINE 4% PATCH TP SCH (09:54)
[2023-10-10 10:59] VITALS: BP 104/47; PULSE 45; RESP 17; TEMP 97.7
== END 2023-10-10 13:30 | disposition short-term general hospital (02) | DRG 378 ==
LOC: JER 10:06 → JERBED 14:44 → JICU 17:15 → J2W 10-09 18:42
PROVIDERS: ADMIT Internal Medicine Pulmonary Disease; ATTEND Internal Medicine
PROC: 30233N1 Transfusion of Nonautologous Red Blood Cells into Peripheral Vein, Percutaneous Approach (ICD-10-PCS; principal; 2023-10-07)
DX: K92.2 Gastrointestinal hemorrhage, unspecified (principal); D62 Acute posthemorrhagic anemia; C67.9 Malignant neoplasm of bladder, unspecified; I10 Essential (primary) hypertension; E04.1 Nontoxic single thyroid nodule; I35.0 Nonrheumatic aortic (valve) stenosis; E78.5 Hyperlipidemia, unspecified; K59.00 Constipation, unspecified; R91.1 Solitary pulmonary nodule; G89.29 Other chronic pain; K57.30 Diverticulosis of large intestine without perforation or abscess without bleeding
CPT/HCPCS: 36415; 36430; 71045-TC-FY; 80048; 80053; 81003; 82272; 82550; 82962; 83735; 84100; 84443; 84484; 85025; 85027; 85610; 85730; 86850; 86900; 86901; 86922; 87635; 93005; 93010; 93970-TC; 94640; 99291; J0131; J1644; J7168; P9038; P9058